=== PATIENT | female | born 1985 | race Caucasian/White ===

== ENCOUNTER 2016-03-24 11:38 | Outpatient (CLI) | payer OTHER ==
[2016-03-24 12:31] LABS: APPEARANCE,URINE CLOUDY; BILIRUBIN,URINE NEGATIVE (NEGATIVE); GLUCOSE, URINE NEGATIVE (NEGATIVE); KETONES,URINE 20 mg/dL (NEGATIVE); LEUKOCYTE ESTERASE,URINE MODERATE (NEGATIVE); NITRITE,URINE NEGATIVE (NEGATIVE); PROTEIN,URINE 30 mg/dL (NEGATIVE); URINE SPECIFIC GRAVITY 1.017; UROBILINOGEN,URINE NEGATIVE mg/dL (<2.0)
[2016-03-24 12:44] LABS: URINE BARBITURATES SCREEN NEGATIVE; URINE METHADONE SCREEN NEGATIVE; URINE PHENCYCLIDINE SCREEN NEGATIVE
--- NOTE | 2016-03-27 11:15 | L&D Current Admission ---
Current Admit Datetime Report Generated by CPN: 03/27/2016 11:15 ADMISSION INFORMATION Chief Complaint: Decreased Movement; Nausea; Vomiting (03/24/2016 11:55:KOFI Marr)
--- NOTE | 2016-03-27 11:15 | Antepartum Discharge Summary ---
Antepartum DC Datetime Report Generated by CPN: 03/27/2016 11:15 DIET/ACTIVITY/RESTRICTIONS Diet: Regular (03/24/2016 13:02:KOFI Marr) Activity: Normal Activity (03/24/2016 13:02:Luz Elena Coles RNC) TEACHING/INSTRUCTIONS/REFERRALS Instructions Given To: Patient (03/24/2016 13:02:KOFI Marr) Instructions Understood: Patient Verbalized Understanding; Support Person Verbalized Understanding (03/24/2016 13:02:KOFI Marr) Referrals: None (03/24/2016 13:02:KOFI Marr) Educational Materials- Other: hydration (03/24/2016 13:02:KOFI Marr) DISCHARGE INFORMATION Discharged AMA: No (03/24/2016 13:02:KOFI Marr) Discharge Date/Time: 03/24/2016 12:48 (03/24/2016 13:02:KOFI Marr) Discharged To: Home (03/24/2016 13:02:KOFI Marr) Discharge Provider Name: Janine Willson CNM (03/24/2016 13:02:KOFI Marr) Accompanied By: , children (03/24/2016 13:02:KOFI Marr) Discharge Method: Wheelchair (03/24/2016 13:02:KOFI Marr) Condition: Stable (03/24/2016 13:02:KOFI Marr) FOLLOW UP INFORMATION Follow Up With: [facility] (03/24/2016 13:02:KOFI Marr) Follow Up On: As Scheduled (03/24/2016 13:02:KOFI Marr) Follow Up Phone Number: [facility] - (03/24/2016 13:02:KOFI Marr)
--- NOTE | 2016-03-27 11:16 | L&D Flow Sheet ---
LD Flowsheet Datetime Report Generated by CPN: 03/27/2016 11:16 Datetime: 03/24/2016 12:41 Comments: Monitors removed from abdomen, pt transported to ER for assessment and treatment of n/v. (Luz Elena Sanket, RNC) Datetime: 03/24/2016 12:30 Monitor Mode: External (Luz Elena Sanket, RNC) Frequency (min): x0 (Luz Elena Sanket, RNC) Resting Tone (Palpate): Relaxed (Luz Elena Sanket, RNC) Monitor Mode: External US (KOFI Marr) FHR Baseline Rate : 135 (KOFI Marr) Variability: Moderate 6-25 bpm (KOFI Marr) Accelerations: None (KOFI Marr) Decelerations: None (Luz Elena Coles RNC) Datetime: 03/24/2016 12:04 NBP Sys/Ashley/Mean (mmHg): 113 (QS system process) : 68 (QS system process) : 85 (QS system process) Pulse: 89 (QS system process) Datetime: 03/24/2016 11:55 Pain Scale: 0 (KOFI Marr) Pain Presence: None/Denies (KOFI Marr) Level of Consciousness: Fully Conscious (KOFI Marr) DTR's/Clonus: DTRs 2+; No Clonus (KOFI Marr) Headache: Denies (KOFI aMrr) Breath Sounds, Left: Clear and Equal (KOIF Marr) Breath Sounds, Right: Clear and Equal (Luz Elena Coles RNC) Nausea/Vomiting: Present (Annotations: Pt states that her kids have had a stomach bug at the beginning of the week and since had gotten it as well. She states that she hasn't been able to keep anything down until this morning when she was able to keep water and some oranges down. ) (KOFI Marr) RUQ Epigastric Pain: Denies (KOFI Marr) Instructional Method: Verbal; Patient Instructed; Family/Support Person Instructed; Verbalized Understanding (KOFI Marr) Plan of Care: Plan of Care Discussed (KOFI Marr) Unit Routine: Wing[place] to Room; Call Shukla; Bed; Unit Personnel; Handwashing; Flu/Illness Precautions; Monitoring; Diet/Nutrition Services; Bathroom Privileges (KOFI Marr) PTL/PROM: PTL Stimulating Activities; Hydration (KOFI Marr) Related: Common Discomforts of ; Nutrition; Hydration; Activity and Rest (KOFI Marr) Grief Support: Procedure/Plan; Medications (KOFI Marr)
--- NOTE | 2016-03-27 11:16 | L&D General Admission ---
General Admit Datetime Report Generated by CPN: 03/27/2016 11:15 INFORMATION Patient Age: 30 (03/17/2016 11:11:QS system process) EDC: 06/05/2016 00:00 (03/24/2016 11:53:Edgar Ibrahim RN) LMP: 08/18/2015 00:00 (03/24/2016 11:53:Edgar Ibrahim RN) : 3 (03/24/2016 11:53:Edgar Ibrahim RN) Para: 2 (03/24/2016 11:53:Edgar Ibrahim RN) Term: 2 (03/24/2016 11:53:KOFI Marr) : 0 (03/24/2016 11:53:KOFI Marr) Spontaneous Abortions: 0 (03/24/2016 11:53:KOFI Marr) Induced Abortions: 0 (03/24/2016 11:53:KOFI Mrar) Livin (03/24/2016 11:53:KOFI Marr) CARE Primary Assistant Paralegal: [employer] [facility] (03/24/2016 11:53:KOFI Marr) Height (in): 66 (03/24/2016 11:55:QS system process) ALLERGIES Medication Allergy: No (03/24/2016 11:53:Edgar Ibrahim RN) Medication Allergies: penicillin G (03/24/2016) (03/24/2016 11:55:QS system process) Medication Allergies: penicillin G (09/11/2014) (03/17/2016 11:11:QS system process) Latex Allergy: Latex Allergies (03/24/2016 11:53:Edgar Ibrahim RN) DEMOGRAPHICS Address: [address] [place] [address] (03/17/2016 11:11:QS system process) Zipcode: [address] (03/17/2016 11:11:QS system process) Home (03/17/2016 11:11:QS system process) SSN: [id number] (03/17/2016 11:11:QS system process) Next of Kin Name: ABRAHAM GIRON (03/17/2016 11:11:QS system process) Next of Kin (03/17/2016 11:11:QS system process) Next of Kin Relationship: SPO (03/17/2016 11:11:QS system process) Date of : 1985 (03/17/2016 11:11:QS system process) Marital Status: (03/17/2016 11:11:QS system process) Sex: Female (03/17/2016 11:11:QS system process) Race: (03/17/2016 11:11:QS system process) Ethnicity: Non- or (03/17/2016 11:11:QS system process) Jew: Adventist (03/17/2016 11:11:QS system process) DRUG AND ALCOHOL USE Alcohol: No (03/24/2016 11:53:KOFI Marr) Cigarettes: Never Smoker. [id number] (03/24/2016 11:53:KOFI Marr) Marijuana: No (03/24/2016 11:53:KOFI Marr) Cocaine: No (03/24/2016 11:53:KOFI Marr) Other Illicit Drugs: No (03/24/2016 11:53:KOFI Marr) VACCINE HISTORY Influenza Vaccine: Yes (03/24/2016 11:53:Edgar Ibrahim RN) Influenza Date: 01-21-16 (03/24/2016 11:53:Edgar Ibrahim RN) Tetanus Vaccine: Yes (03/24/2016 11:53:Edgar Ibrahim RN) Tetanus Date: 07-30-2014 (03/24/2016 11:53:Edgar Ibrahim RN) LABS Hemoglobin: 12.6 (03/24/2016 13:36:QS system process) Hematocrit: 36.6 (03/24/2016 13:36:QS system process) MCV: 89 (03/24/2016 13:36:QS system process) OB/PREVIOUS HISTORY LMP: 08/18/2015 00:00 (03/24/2016 11:53:Edgar Ibrahim RN) Comments Obstetrical History: G1 04/10/2013 38wk 24hr labor 6.10lb F Epidural [place] G2 10/10/2014 39.1wk 6.15lb M Epidural [facility] G3 Current (03/24/2016 11:53:Edgar Ibrahim RN) INFECTIOUS HISTORY Details of Infectious Hx: Colposcopy 2012 (03/24/2016 11:53:Edgar Ibrahim RN)
--- NOTE | 2016-03-27 11:17 | L&D Discharge Summary ---
OB Discharge Summary Datetime Report Generated by CPN: 03/27/2016 11:16 DISCHARGE DIAGNOSIS Diagnosis/Symptoms: Decreased Movement; Reassuring Surveillance - Annotate Details; Dehydration; Nausea/Vomiting Diagnoses/Symptoms Other: IUP at 29.4 weeks, positive FM, appropriate for gestational age surveillance. Treatment/Procedures Other: Pt transferred back to ER for further evaluation of non-OB complaints Gestation: 29.4 Parity: 2 DIET/ACTIVITY/RESTRICTIONS Diet: Regular Activity: Normal Activity TEACHING/INSTRUCTIONS/REFERRALS Instructions Given To: Patient Instructions Understood: Patient Verbalized Understanding; Support Person Verbalized Understanding Referrals: None Educational Materials- Other: hydration DISCHARGE INFORMATION Discharged AMA: No Discharge Date/Time: 03/24/2016 12:48 Discharged To: Home Discharge Provider Name: H Demetris CNM Accompanied By: , children Discharge Method: Wheelchair Condition: Stable FOLLOW UP INFORMATION Follow Up With: [facility] Follow Up On: As Scheduled Follow Up Phone Number: [facility] -
--- NOTE | 2016-03-27 11:18 | L&D Discharge Summary ---
OB Discharge Summary Datetime Report Generated by CPN: 03/27/2016 11:18 DISCHARGE DIAGNOSIS Diagnosis/Symptoms: Decreased Movement; Reassuring Surveillance - Annotate Details; Dehydration; Nausea/Vomiting Diagnoses/Symptoms Other: IUP at 29.4 weeks, positive FM, appropriate for gestational age surveillance. Treatment/Procedures Other: Pt transferred back to ER for further evaluation of non-OB complaints Gestation: 29.4 Parity: 2 DIET/ACTIVITY/RESTRICTIONS Diet: Regular Activity: Normal Activity TEACHING/INSTRUCTIONS/REFERRALS Instructions Given To: Patient Instructions Understood: Patient Verbalized Understanding; Support Person Verbalized Understanding Referrals: None Educational Materials- Other: hydration DISCHARGE INFORMATION Discharged AMA: No Discharge Date/Time: 03/24/2016 12:48 Discharged To: Home Discharge Provider Name: H Demetris CNM Accompanied By: , children Discharge Method: Wheelchair Condition: Stable FOLLOW UP INFORMATION Follow Up With: [facility] Follow Up On: As Scheduled Follow Up Phone Number: [facility] -
== END 2016-03-24 12:48 | disposition home or self-care (01) ==
LOC: LC 11:38
PROVIDERS: ATTEND Obstetrics & Gynecology
PROC: 4A1HXCZ Monitoring of Products of Conception, Cardiac Rate, External Approach (ICD-10-PCS; principal; 2016-03-24)
DX: O36.8130 Decreased fetal movements, third trimester, not applicable or unspecified (principal); O21.2 Late vomiting of pregnancy; Z3A.29 29 weeks gestation of pregnancy
CPT/HCPCS: 80307; 81001

== ENCOUNTER 2016-03-24 12:57 | Emergency (ER) | payer OTHER ==
--- NOTE | 2016-03-24 13:34 | ER Document Report ---
ED Medical Screen (RME) - General Chief Complaint: Nausea/Vomiting Stated Complaint: URINARY PROBLEM Time seen by provider: 13:31 Mode of Arrival: Ambulatory Information source: Patient Notes: 30 yo female presents to ed for back pain vomiting, urinary frequency with blood in it. 30 weeks TRAVEL OUTSIDE OF THE [place] IN LAST 30 DAYS: No - HPI Onset: Other - sunday Onset/Duration: Gradual Quality of pain: Achy Pain Level: 2 Associated Symptoms: Body/muscle aches, Nausea, Other - back pain, urinary symptoms, 30 weeks cleared by OB Exacerbated by: Denies Relieved by: Denies Similar symptoms previously: Yes Recently seen / treated by doctor: Yes - Related Data Smoking: Non-smoker Frequency of alcohol use: None Drug Abuse: None Allergies/Adverse Reactions: penicillin G [Penicillin G] Adverse Reaction (Verified 03/24/16 13:28) Doctor's Discharge - Discharge Condition: Stable Disposition: LABOR CHECK
[2016-03-24 14:16] LABS: ABSOLUTE EOSINOPHILS # (AUTO) 0.1 10^3/uL (0.0-0.6); ABSOLUTE LYMPHOCYTES (AUTO) 1.5 10^3/uL (0.5-4.7); ABSOLUTE MONOCYTES (AUTO) 0.7 10^3/uL (0.1-1.4); BASOPHILS % (AUTO) 0.2 % (0-2); EOSINOPHILS % (AUTO) 0.6 % (0-6); HEMATOCRIT 36.6 % (36.0-47.0); HEMOGLOBIN 12.6 g/dL (12.0-15.5); HGB HCT DIFFERENCE 1.2; MEAN CORPUSCULAR HEMOGLOBIN 30.4 pg (27.0-33.4); MEAN CORPUSCULAR HGB CONC 34.3 g/dL (32.0-36.0); MEAN CORPUSCULAR VOLUME 89 fl (80-97); MONOCYTES % (AUTO) 7.8 % (3-13); RED BLOOD COUNT 4.13 10^6/uL (3.72-5.28); RED CELL DISTRIBUTION WIDTH 13.3 % (11.5-14.0); SEGMENTED NEUTROPHILS % (AUTO) 75.4 % (42-78); WHITE BLOOD COUNT 9.3 10^3/uL (4.0-10.5)
[2016-03-24 14:21] LABS: APPEARANCE,URINE CLEAR; BILIRUBIN,URINE NEGATIVE (NEGATIVE); GLUCOSE, URINE NEGATIVE (NEGATIVE); KETONES,URINE 20 mg/dL (NEGATIVE); LEUKOCYTE ESTERASE,URINE NEGATIVE (NEGATIVE); NITRITE,URINE NEGATIVE (NEGATIVE); PROTEIN,URINE NEGATIVE (NEGATIVE); URINE SPECIFIC GRAVITY 1.006; UROBILINOGEN,URINE NEGATIVE mg/dL (<2.0)
[2016-03-24 14:40] LABS: ALANINE AMINOTRANSFERASE 27 U/L (9-52); ALBUMIN 3.3 g/dL (3.5-5.0); ALKALINE PHOSPHATASE 90 U/L (38-126); ANION GAP 12 (5-19); ASPARTATE AMINO TRANSFERASE 19 U/L (14-36); BILIRUBIN,TOTAL 0.3 mg/dL (0.2-1.3); BLOOD UREA NITROGEN 9 mg/dL (7-20); CALCIUM 8.6 mg/dL (8.4-10.2); CARBON DIOXIDE 22 mmol/L (22-30); CHLORIDE 103 mmol/L (98-107); CREATININE RESULT 0.64 mg/dL (0.52-1.25); GLUCOSE 73 mg/dL (75-110); SODIUM 136.6 mmol/L (137-145); TOTAL PROTEIN 6.4 g/dL (6.3-8.2)
--- NOTE | 2016-03-24 15:46 | ER Document Report ---
[id number] PROBLEM Mode of Arrival: Ambulatory Information source: Patient Notes: 22-year-old female who is presents with complaints of blood in her urine as well as three-day duration of vomiting which has since resolved. Patient notes today she has not vomited and has been hydrating well. Denies any fevers or chills. Patient was concerned about movement, and was seen by JOINTER MACHINE upstairs and cleared and sent downstairs to the ED for evaluation TRAVEL OUTSIDE OF THE [place] IN LAST 30 DAYS: No - HPI Onset: Just prior to arrival Onset/Duration: Sudden Quality of pain: No pain Severity: Mild Pain Level: Denies Associated symptoms: Other Exacerbated by: Denies Relieved by: Denies Similar symptoms previously: No Recently seen / treated by doctor: Yes - cleared by JOINTER MACHINE - Related Data Allergies/Adverse Reactions: penicillin G [Penicillin G] Adverse Reaction (Verified 03/24/16 13:28) Past Medical History - General Information source: Patient - Social History Smoking Status: Never Smoker Cigarette use (# per day): No Chew tobacco use (# tins/day): No Smoking Education Provided: No Frequency of alcohol use: None Drug Abuse: None Family History: Reviewed & Not Pertinent Patient has suicidal ideation: No Patient has homicidal ideation: No Surgical Hx: Negative - Immunizations Hx Diphtheria, Pertussis, Tetanus Vaccination: Yes Review of Systems - Review of Systems Notes: REVIEW OF SYSTEMS: CONSTITUTIONAL : Denies fever, chills, or sweats. Denies recent illness. EENT: Denies eye, ear, throat, or mouth pain or symptoms. Denies nasal or sinus congestion or discharge. Denies throat, tongue, or mouth swelling or difficulty swallowing. CARDIOVASCULAR: Denies chest pain. Denies palpitations or racing or irregular heart beat. Denies ankle edema. RESPIRATORY: Denies cough, cold, or chest congestion. Denies shortness of breath, difficulty breathing, or wheezing. GASTROINTESTINAL: Denies abdominal pain or distention. Denies nausea, vomiting , or diarrhea. Denies blood in vomitus, stools, or per rectum. Denies black, tarry stools. Denies constipation. GENITOURINARY: Admits to blood in urine FEMALE GENITOURINARY: Denies vaginal bleeding, heavy or abnormal periods, irregular periods. Denies vaginal discharge or odor. MUSCULOSKELETAL: Denies back or neck pain or stiffness. Denies joint pain or swelling. SKIN: Denies rash, lesions or sores. HEMATOLOGIC : Denies easy bruising or bleeding. LYMPHATIC: Denies swollen, enlarged glands. NEUROLOGICAL: Denies confusion or altered mental status. Denies passing out or loss of consciousness. Denies dizziness or lightheadedness. Denies headache. Denies weakness or paralysis or loss of use of either side. Denies problems with gait or speech. Denies sensory loss, numbness, or tingling. Denies seizures. PSYCHIATRIC: Denies anxiety or stress. Denies depression, suicidal ideation, or homicidal ideation. ALL OTHER SYSTEMS REVIEWED AND NEGATIVE. Dictation was performed using [employer] voice recognition software PHYSICAL EXAMINATION: GENERAL: Well-appearing, well-nourished and in no acute distress. HEAD: Atraumatic, normocephalic. EYES: Pupils equal round and reactive to light, extraocular movements intact, conjunctiva are normal. ENT: Nares patent, oropharynx clear without exudates. Moist mucous membranes. NECK: Normal range of motion, supple without lymphadenopathy LUNGS: Breath sounds clear to auscultation bilaterally and equal. No wheezes rales or rhonchi. HEART: Regular rate and rhythm without murmurs ABDOMEN: Soft, gravid nontender, abdomen. No guarding, no rebound. No masses appreciated. Female : deferred Musculoskeletal: Normal range of motion, no pitting or edema. No cyanosis. NEUROLOGICAL: Cranial nerves grossly intact. Normal speech, normal gait. Normal sensory, motor exams PSYCH: Normal mood, normal affect. SKIN: Warm, Dry, normal turgor, no rashes or lesions noted. Physical Exam - Vital signs Vitals: Temp Pulse Resp BP Pulse Ox 98 F 84 20 120/81 99 03/24/16 13:28 03/24/16 13:28 03/24/16 13:28 03/24/16 13:28 03/24/16 13:28 Course - Re-evaluation Re-evalutation: 03/24/16 21:31 Urinalysis did not note any signs of infection or bleeding, patient was evaluated for her and this was noted to be normal. I will send the patient home with nausea medication and she is otherwise stable for discharge. Patient denies any other concerns at this time and is very happy with her care After performing a Medical Screening Examination, I estimate there is LOW risk for ACUTE APPENDICITIS, BOWEL OBSTRUCTION, ACUTE CHOLECYSTITIS, PERFORATED DIVERTICULITIS, INCARCERATED HERNIA, PANCREATITIS, PELVIC INFLAMMATORY DISEASE, PERFORATED ULCER, ECTOPIC , or TUBO-OVARIAN ABSCESS, thus I consider the discharge disposition reasonable. Also, there is no evidence or peritonitis , sepsis, or toxicity. The patient and I have discussed the diagnosis and risks , and we agree with discharging home with close follow-up with the understanding that symptoms and presentations can change. We also discussed returning to the Emergency Department immediately if new or worsening symptoms occur. We have discussed the symptoms which are most concerning (e.g., bloody stool, fever, changing or worsening pain, vomiting) that necessitate immediate return. - Vital Signs Vital signs: Temp Pulse Resp BP Pulse Ox 98.3 F 93 18 101/66 97 03/24/16 16:14 03/24/16 16:14 03/24/16 16:14 03/24/16 16:14 03/24/16 16:14 - Laboratory Result Diagrams: 03/24/16 13:36 03/24/16 13:36 Laboratory results interpreted by me: 03/24/16 03/24/16 13:36 13:36 Sodium 136.6 L Glucose 73 L Albumin 3.3 L Urine Ketones 20 H Discharge - Discharge Clinical Impression: Nausea & vomiting Qualifiers: Vomiting type: unspecified Vomiting Intractability: non-intractable Qualified Code(s): R11.2 - Nausea with vomiting, unspecified Qualifiers: Weeks of gestation: unspecified Qualified Code(s): Z33.1 - state, incidental Condition: Stable Disposition: HOME, SELF-CARE Instructions: Vomiting ([facility]) Prescriptions: Promethazine HCl [Phenergan 25 mg Tablet] 1 - 2 tab PO Q6H PRN #15 tablet PRN Reason: Referrals: POPEYE DOUGLAS MD [Primary Care Provider] - Follow up tomorrow
[2016-03-24 16:15] VITALS: BP 101/66
== END 2016-03-24 15:53 | disposition home or self-care (01) ==
LOC: ER 12:57
DX: O21.2 Late vomiting of pregnancy (principal); O26.893 Other specified pregnancy related conditions, third trimester; R31.9 Hematuria, unspecified; Z3A.30 30 weeks gestation of pregnancy
CPT/HCPCS: 36415; 80053; 81001; 85025; 99283

== ENCOUNTER 2016-05-14 19:08 | Inpatient (IN) | payer OTHER ==
[2016-05-14 19:55] LABS: APPEARANCE,URINE CLEAR; BILIRUBIN,URINE NEGATIVE (NEGATIVE); GLUCOSE, URINE NEGATIVE (NEGATIVE); KETONES,URINE NEGATIVE (NEGATIVE); LEUKOCYTE ESTERASE,URINE NEGATIVE (NEGATIVE); NITRITE,URINE NEGATIVE (NEGATIVE); PROTEIN,URINE NEGATIVE (NEGATIVE); URINE SPECIFIC GRAVITY 1.008; UROBILINOGEN,URINE NEGATIVE mg/dL (<2.0)
[2016-05-14 20:06] LABS: AMNISURE (ROM) NEGATIVE (NEGATIVE)
[2016-05-14 20:11] LABS: URINE BARBITURATES SCREEN NEGATIVE; URINE METHADONE SCREEN NEGATIVE; URINE OPIATES LOW NEGATIVE; URINE PHENCYCLIDINE SCREEN NEGATIVE
[2016-05-14] MEDS ORDERED: RINGERS SOLUTION,LACTATED 1,000 ML IV ONE (20:25)
[2016-05-14] MEDS ORDERED: CLINDAMYCIN 900 MG/D5W RTU 50 ML IV ONE (20:29)
[2016-05-14] MEDS ORDERED: CLINDAMYCIN 900 MG/D5W RTU 50 ML IV SCH (20:30)
[2016-05-14 21:15] LABS: ABSOLUTE EOSINOPHILS # (AUTO) 0.2 10^3/uL (0.0-0.6); ABSOLUTE LYMPHOCYTES (AUTO) 2.6 10^3/uL (0.5-4.7); ABSOLUTE MONOCYTES (AUTO) 1.1 10^3/uL (0.1-1.4); ABSOLUTE NEUT (AUTO) 9.8 10^3/uL (1.7-8.2); BASOPHILS % (AUTO) 0.2 % (0-2); EOSINOPHILS % (AUTO) 1.5 % (0-6); HEMATOCRIT 35.5 % (36.0-47.0); HEMOGLOBIN 11.8 g/dL (12.0-15.5); HGB HCT DIFFERENCE -0.1; LYMPHOCYTES % (AUTO) 19.1 % (13-45); MEAN CORPUSCULAR HEMOGLOBIN 29.6 pg (27.0-33.4); MEAN CORPUSCULAR HGB CONC 33.4 g/dL (32.0-36.0); MEAN CORPUSCULAR VOLUME 89 fl (80-97); MONOCYTES % (AUTO) 7.8 % (3-13); RED BLOOD COUNT 3.99 10^6/uL (3.72-5.28); RED CELL DISTRIBUTION WIDTH 14.3 % (11.5-14.0); SEGMENTED NEUTROPHILS % (AUTO) 71.4 % (42-78); WHITE BLOOD COUNT 13.7 10^3/uL (4.0-10.5)
[2016-05-14] MEDS ORDERED: BUPIVACAINE HCL 0.25 % INJ/PF (2.5 MG/1 ML) 30 ML VIAL ONE (21:34)
[2016-05-14] MEDS ORDERED: FENTANYL/BUPIVACAINE/NS/PF 200 MCG/100 ML RTUINJ EPI ONE (21:34)
[2016-05-14] MEDS ORDERED: EPHEDRINE SULFATE INJ 50 MG/1 ML AMPULE ONE (21:34)
--- NOTE | 2016-05-14 22:00 | L&D Flow Sheet ---
LD Flowsheet Datetime Report Generated by CPN: 05/14/2016 22:00 Datetime: 05/14/2016 21:58 NBP Sys/Ashley/Mean (mmHg): 124 (QS system process) : 69 (QS system process) : 91 (QS system process) Pulse: 83 (QS system process) Datetime: 05/14/2016 21:57 NBP Sys/Ashley/Mean (mmHg): 138 (QS system process) : 79 (QS system process) : 101 (QS system process) Pulse: 98 (QS system process) Epidural Procedure: Cath Placed (Cristiana Lattibeaudeir, RN) Datetime: 05/14/2016 21:56 NBP Sys/Ashley/Mean (mmHg): 142 (QS system process) : 85 (QS system process) : 108 (QS system process) Pulse: 101 (QS system process) Epidural Procedure: Test Dose (Cristiana Lattibeaudeir, RN) Datetime: 05/14/2016 21:54 Pulse: 109 (QS system process) SpO2 (%): 100 (QS system process) Datetime: 05/14/2016 21:52 NBP Sys/Ashley/Mean (mmHg): 148 (QS system process) : 90 (QS system process) : 114 (QS system process) Pulse: 99 (QS system process) Datetime: 05/14/2016 21:49 Pulse: 95 (QS system process) SpO2 (%): 100 (QS system process) SpO2 (%): 91 (QS system process) Datetime: 05/14/2016 21:46 Anesthesia Comments: Dr. Dariel at bs (Cristiana Lattibeaudeir, RN) Datetime: 05/14/2016 20:54 Monitor Interventions for UA: [place] Adjusted (Cristiana Lattibeaudeir, RN) Datetime: 05/14/2016 20:52 Antibiotics: Clindamycin IV 900 mg (Cristiana Lattibeaudeir, RN) Datetime: 05/14/2016 20:51 IV/Blood Work: IV Started; IV Bolus Started; IV Infusing per Order; New IV Bag Hung; IV Bag Number @ 1 (Cristiana Lattibeaudeir, RN) Datetime: 05/14/2016 20:47 NBP Sys/Ashley/Mean (mmHg): 142 (QS system process) : 84 (QS system process) : 105 (QS system process) Pulse: 92 (QS system process) Datetime: 05/14/2016 20:24 NBP Sys/Ashley/Mean (mmHg): 139 (QS system process) : 93 (QS system process) : 109 (QS system process) Pulse: 90 (QS system process)
[2016-05-15] MEDS ORDERED: EPHEDRINE SULFATE INJ 50 MG/1 ML AMPULE IV ONE (00:07)
[2016-05-15] MEDS ORDERED: BUPIVACAINE HCL 0.25 % INJ/PF (2.5 MG/1 ML) 30 ML VIAL INFIL ONE (00:07)
[2016-05-15] MEDS ORDERED: BENZOIN/ALOE VERA/STORAX/TOLU TINCTURE 60 ML TP PRN (00:07)
[2016-05-15] MEDS ORDERED: FENTANYL/BUPIVACAINE/NS/PF 100 ML EPI PRN (00:07)
[2016-05-15] MEDS ORDERED: EPHEDRINE SULFATE INJ 50 MG/1 ML AMPULE IV PRN (00:07)
[2016-05-15] MEDS ORDERED: LIDOCAINE 1% INJ-PF (10 MG/ML) 30 ML SDV ONE (00:12)
[2016-05-15] MEDS ORDERED: MISOPROSTOL 0.2 MG TABLET ONE (00:12)
[2016-05-15] MEDS ORDERED: OXYTOCIN/NORMAL SALINE 20 UNIT/1,000 ML RTUINJ ONE (00:12)
[2016-05-15] MEDS ORDERED: ACETAMINOPHEN WITH CODEINE #3 TABLET PO PRN (00:48)
[2016-05-15] MEDS ORDERED: MEASLES,MUMPS&RUBELLA VACC/PF 0.5 ML VIAL SUBCUT PRN (00:48)
[2016-05-15] MEDS ORDERED: DIPH/PERTUSS(ACELL)/TETANUS VAC/PF 0.5 ML SYR (>=10YO) IM PRN (00:48)
[2016-05-15] MEDS ORDERED: DIBUCAINE 1% OINTMENT 28 GM TP PRN (00:48)
[2016-05-15] MEDS ORDERED: ZOLPIDEM TARTRATE 5 MG TABLET PO PRN (00:48)
[2016-05-15] MEDS ORDERED: OXYTOCIN/NORMAL SALINE 1,000 ML IV PRN (00:48)
[2016-05-15] MEDS ORDERED: BENZOCAINE/MENTHOL AEROSOL SPRAY 56 ML TOP PRN (00:48)
[2016-05-15] MEDS: RINGERS SOLUTION,LACTATED 1,000 ML IV PRN ×2 (01:14→01:15)
--- NOTE | 2016-05-15 02:28 | Delivery Summary ---
Del Sum A-C Datetime Report Generated by CPN: 05/15/2016 02:27 ADMISSION DATA Chief Complaint: Uterine Contractions; Suspected Ruptured Membranes Admission Impression: , Intrauterine ; Active Labor; Intact Membranes Admit Provider Comments: 30yo at 36+6ega presents with regular uterine ctx possible PROM and advanced cervical dilation. Cvx 5/c/-1 with bb. ctx q 3 minutes. x 2. GBS unknown as it was done on 05/11. Will begin Clindamycin for GBS prophy due to PCN allergy. Admit to L_D and obtain epidural and augment labor if needed. Reassuring FWB. Vertex presentation. Pelvis adequate for MARICEL. EFW 6# DELIVERY PERSONNEL Delivery Doctor:: Zenia Reddy MD Labor and Delivery Nurse:: Cristiana Green RN Labor and Delivery Nurse:: Erika Moses RN MATERNAL INFORMATION Delivery Anesthesia: Epidural Medications After Delivery: Pitocin Drip 20 Units/1000ml NSS Maternal Complications: None Provider Comments: VMI delivered in ALDO presentation with no nuchal cord. Shoulders and body delivered w/o difficulty. Cord doubly clamped and infant to maternal abdomen for NRP. Placenta delivered intact spontaneously. FF at U. Good hemostasis post repair. Mother and baby stable upon provider leaving the room. Apgars 9/9. LABOR SUMMARY EDC: 06/05/2016 00:00 No. Babies in Womb: 1 Attempted: No Labor Anesthesia: Epidural LABOR INFORMATION Reason for Induction: Not Applicable Onset of Labor: 05/14/2016 20:30 Complete Dilatation: 05/15/2016 00:14 Oxytocin: N/A Group B Beta Strep: Unknown Antibiotics # of Doses: 1 Antibiotics Time of Last Dose: 2051 Name of Antibiotic Given: Clindamycin 900mg Steroids Given: None Reason Steroids Not Administered: Not Applicable MEMBRANES Membranes Rupture Method: Spontaneous Rupture of Membranes: 05/15/2016 00:14 Length of Rupture (hr): 0.35 Amniotic Fluid Color: Clear Amniotic Fluid Amount: Moderate Amniotic Fluid Odor: Normal STAGES OF LABOR Stage 1 hr: 3 Stage 1 min: 44 Stage 2 hr: 0 Stage 2 min: 21 Stage 3 hr: 0 Stage 3 min: 3 Total Time in Labor hr: 4 Total Time in Labor min: 8 VAGINAL DELIVERY Episiotomy: None Laceration Extension: First Degree Laceration Type: Vaginal Other Laceration: clitoral Laceration Repair: Yes Laceration Repair Note: 1st degree clitoral laceration repaired in the usual fashion with good hemostasis. Sponge Count Correct: N/A Sharps Count Correct: Yes CSECTION DELIVERY Primary Indication: N/A Secondary Indication: N/A CSection Incidence: N/A Labor: N/A Elective: N/A CSection Incision: N/A BABY A INFORMATION Delivery Date/Time: 05/15/2016 00:35 Method of Delivery: Vaginal Born in Route : No : N/A Forceps: N/A Vacuum Extraction: N/A Shoulder Dystocia : No PRESENTATION/POSITION BABY A Presentation: Cephalic Cephalic Presentation: Vertex Vertex Position: Left Occipital Anterior Breech Presentation: N/A PLACENTA INFORMATION BABY A Placenta Delivery Time : 05/15/2016 00:38 Placenta Method of Delivery: Spontaneous Placenta Status: Delivered SCORES BABY A Heart Rate 1 min: >100 bpm Resp Effort 1 min: Good Cry Reflex Irritability 1 min: Cough or Sneeze or Pulls Away Muscle Tone 1 min: Active Motion Color 1 min: Body [place], Extremities Blue Resuscitation Effort 1 min: Tactile Stimulation SCORE 1 MIN: 9 Heart Rate 5 min: >100 bpm Resp Effort 5 min: Good Cry Reflex Irritability 5 min: Cough or Sneeze or Pulls Away Muscle Tone 5 min: Active Motion Color 5 min: Body [place], Extremities Blue Resuscitation Effort 5 min: Tactile Stimulation SCORE 5 MIN: 9 INFORMATION BABY A Gestational Age at Delivery: 37.0 Gestational Status: Early Term- 37- 38.6 Weeks Infant Outcome : Liveborn Infant Condition : Stable Infant Sex: Male IDENTIFICATION BABY A Verification Date/Time: 05/15/2016 01:05 ID Band Number: [id number] Mother's Name Verified: Yes RN Verifying Infant: Zaida Green RN Additional Verifying Personnel: Daniel Renteria RN WEIGHT/LENGTH BABY A Birthweight (gm): 3530 Weight (lb): 7 Weight (oz): 13 Length (in): 20.75 Infant Length (cm): 52.71 CORD INFORMATION BABY A No. Cord Vessels: 3 Nuchal Cord : N/A Nuchal Cord- Other: left compound hand Cord Blood Taken: Yes-For Eval (Mom's Blood Type - or O+) Suction: Mouth; Nose ASSESSMENT BABY A Infant Complications: None Physical Findings at Delivery: Within Normal Limits Respirations: Appears Normal [employer] Attendant/ALS Called : No Care By: Al Cavazos, RN Transferred To: Remains with Mother BABY B INFORMATION : N/A SIGNATURES Signature: with User ID: [email or web address]
--- NOTE | 2016-05-15 02:46 | Admission Physical ---
Datetime Report Generated by CPN: 05/15/2016 02:45 CURRENT ADMISSION Chief Complaint: Uterine Contractions; Suspected Ruptured Membranes Admit Plan: Admit to Unit; Initiate Labor Protocol ALLERGIES Medication Allergies: No Medication Allergies: penicillin G (03/24/2016) Latex: Latex Allergies OBSTETRICAL HISTORY EDC: 06/05/2016 00:00 : 3 Para: 2 Term: 2 : 0 SAB: 0 IAB: 0 Ectopic: 0 Livin Cesareans: 0 VBACs: 0 Multiple Births: 0 Gestational Diabetes: No Rh Sensitization: No Incompetent Cervix: No ETIENNE: No Infertility: No ART Treatment: No Uterine Anomaly: No IUGR: No Hx Previous C/S: No Macrosomia: No Hx Loss/Stillborn: No PIH: No Hx : No Placenta Previa/Abruption: No Depression/PP Depression: No PTL/PROM: No Post Hemorrhage: No Current Procedures: Ultrasound; NST Obstetrical History Comments: G1 04/10/2013 38wk 24hr labor 6.10lb F Epidural [place] G2 10/10/2014 39.1wk 6.15lb M Epidural [facility] G3 Current SEE RECORDS Alcohol: No Marijuana : No Cocaine: No Other Illicit Drugs: No Cigarettes: Never Smoker. [id number] MEDICAL HISTORY Diabetes: No Blood Transfusion: No Pulmonary Disease (Asthma, TB): No Breast Disease: No Hypertension: No Transmission Tester Surgery: No Heart Disease: No Hosp/Surgery: Yes Autoimmune Disorder: No Anesthetic Complications: No Kidney Disease: No Abnormal Pap Smear: Yes Neuro/Epilepsy: No Psychiatric Disorders: No Other Medical Diseases: No Hepatitis/Liver Disease: No Significant Family History: No Varicosities/Phlebitis: No Trauma/Violence : No Thyroid Dysfunction: No Medical History Comments: childbirth INFECTIOUS HISTORY Gonorrhea: No Genital Herpes: No Chlamydia: No Tuberculosis: No Syphilis: No Hepatitis: No HIV/AIDS Exposure: No Rash or Viral Illness: No HPV: No Infectious History Comments: Colposcopy 2012 PHYSICAL EXAM General: Normal HEENT: Normal Neurologic: Normal Thyroid: Normal Heart: Normal Lungs: Normal Breast: Deferred Back: Normal Abdomen: Normal Genitourinary Exam: Normal Extremities: Normal DTRs: Normal Pelvic Type: Adequate Physical Exam Comments: pelvis proven to 6#15oz Vital Signs: Reviewed; Within Normal Limits VAGINAL EXAM Dilatation: 5 Effacement: 100 Station: -1 MEMBRANES Pooling: Negative Membranes: Intact FETUS A EGA: 36.6 Monitoring: External US FHR- Baseline: 125 Variability: Moderate 6-25bpm Accelerations: 15X15 Decelerations: None FHR Category: Category I Presentation: Vertex Admit Comment: 30yo at 36+6ega presents with regular uterine ctx possible PROM and advanced cervical dilation. Cvx 5/c/-1 with bb. ctx q 3 minutes. x 2. GBS unknown as it was done on 05/11. Will begin Clindamycin for GBS prophy due to PCN allergy. Admit to L_D and obtain epidural and augment labor if needed. Reassuring FWB. Vertex presentation. Pelvis adequate for MARICEL. EFW 6# PLANS FOR LABOR AND DELIVERY Labor and Delivery: None Pain Management: Epidural Feeding Preference: Breast Benefit of Breast Feed Discussed: Yes INFORMED CONSENT Informed Consent Obtained: Vaginal Delivery; Risks, Benefits and Alternatives Discussed Signature: with User ID: [email or web address]
[2016-05-15] MEDS: IBUPROFEN 800 MG TABLET PO SCH ×3 (05:04→21:36)
--- NOTE | 2016-05-15 07:00 | L&D Flow Sheet ---
LD Flowsheet Datetime Report Generated by CPN: 05/15/2016 07:00 Datetime: 05/15/2016 02:15 NBP Sys/Ashley/Mean (mmHg): 126 (QS system process) : 88 (QS system process) : 102 (QS system process) Pulse: 84 (QS system process) Respirations: 16 (Cristiana Lattibeaudeir, RN) Datetime: 05/15/2016 01:15 Pain Pain Scale: 0 (Cristiana Lattibeaudeir, RN) Pain Presence: None/Denies (Cristiana Lattibeaudeir, RN) Pain Type: N/A (Cristiana Lattibeaudeir, RN) Datetime: 05/15/2016 00:45 Pain Pain Scale: 0 (Cristiana Lattibeaudeir, RN) Pain Presence: None/Denies (Cristiana Lattibeaudeir, RN) Pain Type: N/A (Cristiana Lattibeaudeir, RN) Datetime: 05/15/2016 00:43 NBP Sys/Ashley/Mean (mmHg): 123 (QS system process) : 73 (QS system process) : 91 (QS system process) Pulse: 86 (QS system process) Datetime: 05/15/2016 00:40 Vital Signs Stage of : Recovery (Cristiana Lattibeaudeir, RN) Datetime: 05/15/2016 00:38 Stage 2 Comments: spontaneous delivery of intact placenta (Cristiana Lattibeaudeir, RN) Datetime: 05/15/2016 00:35 Stage 2 Comments: of viable male (Cristiana Lattibeaudeir, RN) Datetime: 05/15/2016 00:32 Stage 2 Pushing: Coached on Pushing (Cristiana Lattibeaudeir, RN) Pushing Position: Pushing with Contractions; Pushing Lithotomy (Cristiana Lattibeaudeir, RN) Pushing Progress: Descent with Pushing (Cristiana Lattibeaudeir, RN) Datetime: 05/15/2016 00:30 Uterine Activity Monitor Mode: External (Cristiana Lattibeaudeir, RN) Frequency (min): 2-3 (Cristiana Lattibeaudeir, RN) Quality: Moderate to Strong (Cristiana Lattibeaudeir, RN) Duration (sec): 60-90 (Cristiana Lattibeaudeir, RN) Resting Tone (Palpate): Relaxed (Cristiana Lattibeaudeir, RN) Assessment A Monitor Mode: External US (Cristiana Lattibeaudeir, RN) FHR Baseline Rate : 120 (Cristiana Lattibeaudeir, RN) Variability: Moderate 6-25 bpm (Cristiana Lattibeaudeir, RN) Accelerations: 15X15 (Cristiana Lattibeaudeir, RN) Datetime: 05/15/2016 00:29 Stage 2 Comments: Dr. Reddy at bs for delivery (Cristiana Lattibeaudeir, RN) Datetime: 05/15/2016 00:14 Vaginal Exam Dilatation (cm): 10.0 (Cristiana Lattibeaudeir, RN) Effacement (%): 100 (Cristiana Lattibeaudeir, RN) [facility]: 0 [facility] Exam by: Zaida Green RN ([facility] Lattibeaudeir, RN) Membrane Status: Ruptured ([facility] Lattibeaudeir, RN) Membranes Rupture Method: Spontaneous ([facility] Lattibeaudeir, RN) Amniotic Fluid Color: Clear (Cristiana Lattibeaudeir, RN) Amniotic Fluid Amount: Moderate (Cristiana Lattibeaudeir, RN) Amniotic Fluid Odor: Normal (Cristiana Lattibeaudeir, RN) Datetime: 05/15/2016 00:09 NBP Sys/Ashley/Mean (mmHg): 115 (QS system process) : 61 (QS system process) : 83 (QS system process) Pulse: 81 (QS system process) Datetime: 05/15/2016 00:03 NBP Sys/Ashley/Mean (mmHg): 116 (QS system process) : 65 (QS system process) : 85 (QS system process) Pulse: 68 (QS system process) Datetime: 05/15/2016 00:00 Uterine Activity Monitor Mode: External (Cristiana Lattibeaudeir, RN) Frequency (min): 1.5-4 (Cristiana Lattibeaudeir, RN) Quality: Moderate to Strong (Cristiana Lattibeaudeir, RN) Duration (sec): 50-90 (Cristiana Lattibeaudeir, RN) Resting Tone (Palpate): Relaxed (Cristiana Lattibeaudeir, RN) Assessment A Monitor Mode: External US (Cristiana Lattibeaudeir, RN) FHR Baseline Rate : 125 (Cristiana Lattibeaudeir, RN) Variability: Moderate 6-25 bpm (Cristiana Lattibeaudeir, RN) Accelerations: 15X15 (Cristiana Lattibeaudeir, RN) Decelerations: Variable (Cristiana Lattibeaudeir, RN) Datetime: 05/14/2016 23:54 NBP Sys/Ashley/Mean (mmHg): 140 (QS system process) : 59 (QS system process) : 85 (QS system process) Pulse: 68 (QS system process) Datetime: 05/14/2016 23:47 NBP Sys/Ashley/Mean (mmHg): 122 (QS system process) : 72 (QS system process) : 92 (QS system process) Pulse: 68 (QS system process) Datetime: 05/14/2016 23:42 NBP Sys/Ashley/Mean (mmHg): 117 (QS system process) : 67 (QS system process) : 86 (QS system process) Pulse: 67 (QS system process) Datetime: 05/14/2016 23:37 NBP Sys/Ashley/Mean (mmHg): 118 (QS system process) : 67 (QS system process) : 85 (QS system process) Pulse: 73 (QS system process) Datetime: 05/14/2016 23:33 NBP Sys/Ashley/Mean (mmHg): 117 (QS system process) : 66 (QS system process) : 86 (QS system process) Pulse: 82 (QS system process) Datetime: 05/14/2016 23:30 Uterine Activity Monitor Mode: External (Cristiana Lattibeaudeir, RN) Frequency (min): 2-4 (Cristiana Lattibeaudeir, RN) Quality: Moderate (Cristiana Lattibeaudeir, RN) Duration (sec): 60-90 (Cristiana Lattibeaudeir, RN) Resting Tone (Palpate): Relaxed (Cristiana Lattibeaudeir, RN) Assessment A Monitor Mode: External US (Cristiana Lattibeaudeir, RN) FHR Baseline Rate : 130 (Cristiana Lattibeaudeir, RN) Variability: Moderate 6-25 bpm (Cristiana Lattibeaudeir, RN) Accelerations: 15X15 (Cristiana Lattibeaudeir, RN) Datetime: 05/14/2016 23:29 NBP Sys/Ashley/Mean (mmHg): 120 (QS system process) : 64 (QS system process) : 86 (QS system process) Pulse: 72 (QS system process) Datetime: 05/14/2016 23:23 NBP Sys/Ashley/Mean (mmHg): 140 (QS system process) : 60 (QS system process) : 86 (QS system process) Pulse: 81 (QS system process) Datetime: 05/14/2016 23:17 NBP Sys/Ashley/Mean (mmHg): 123 (QS system process) : 60 (QS system process) : 86 (QS system process) Pulse: 84 (QS system process) Datetime: 05/14/2016 23:13 NBP Sys/Ashley/Mean (mmHg): 117 (QS system process) : 67 (QS system process) : 86 (QS system process) Pulse: 81 (QS system process) Datetime: 05/14/2016 23:08 NBP Sys/Ashley/Mean (mmHg): 120 (QS system process) : 70 (QS system process) : 89 (QS system process) Pulse: 85 (QS system process) Datetime: 05/14/2016 23:03 NBP Sys/Ashley/Mean (mmHg): 115 (QS system process) : 60 (QS system process) : 81 (QS system process) Pulse: 75 (QS system process) Datetime: 05/14/2016 23:00 Uterine Activity Monitor Mode: External (Cristiana Lattibeaudeir, RN) Frequency (min): 2.5-4.5 (Cristiana Lattibeaudeir, RN) Quality: Moderate (Cristiana Lattibeaudeir, RN) Duration (sec): 70-90 (Cristiana Lattibeaudeir, RN) Resting Tone (Palpate): Relaxed (Cristiana Lattibeaudeir, RN) Assessment A Monitor Mode: External US (Cristiana Lattibeaudeir, RN) FHR Baseline Rate : 130 (Cristiana Lattibeaudeir, RN) Variability: Moderate 6-25 bpm (Cristiana Lattibeaudeir, RN) Accelerations: 15X15 (Cristiana Lattibeaudeir, RN) Datetime: 05/14/2016 22:59 NBP Sys/Ashley/Mean (mmHg): 123 (QS system process) : 57 (QS system process) : 78 (QS system process) Pulse: 75 (QS system process) Datetime: 05/14/2016 22:52 NBP Sys/Ashley/Mean (mmHg): 111 (QS system process) : 66 (QS system process) : 85 (QS system process) Pulse: 85 (QS system process) Datetime: 05/14/2016 22:49 NBP Sys/Ashley/Mean (mmHg): 110 (QS system process) : 66 (QS system process) : 78 (QS system process) Pulse: 88 (QS system process) Datetime: 05/14/2016 22:41 NBP Sys/Ashley/Mean (mmHg): 118 (QS system process) : 59 (QS system process) : 81 (QS system process) Pulse: 93 (QS system process) Datetime: 05/14/2016 22:39 NBP Sys/Ashley/Mean (mmHg): 113 (QS system process) : 55 (QS system process) : 79 (QS system process) Pulse: 103 (QS system process) Datetime: 05/14/2016 22:37 NBP Sys/Ashley/Mean (mmHg): 119 (QS system process) : 63 (QS system process) : 85 (QS system process) Pulse: 63 (QS system process) Datetime: 05/14/2016 22:35 NBP Sys/Ashley/Mean (mmHg): 114 (QS system process) : 60 (QS system process) : 81 (QS system process) Pulse: 79 (QS system process) Datetime: 05/14/2016 22:32 NBP Sys/Ashley/Mean (mmHg): 107 (QS system process) : 58 (QS system process) : 75 (QS system process) Pulse: 78 (QS system process) Datetime: 05/14/2016 22:31 NBP Sys/Ashley/Mean (mmHg): 102 (QS system process) : 56 (QS system process) : 73 (QS system process) Pulse: 73 (QS system process) Datetime: 05/14/2016 22:30 Uterine Activity Monitor Mode: External (Cristiana Lattibeaudeir, RN) Quality: Moderate (Cristiana Lattibeaudeir, RN) Resting Tone (Palpate): Relaxed (Cristiana Lattibeaudeir, RN) Contraction Comments: unable to determine, pt sitting for epidural (Cristiana Lattibeaudeir, RN) Assessment A Monitor Mode: External US (Cristiana Lattibeaudeir, RN) FHR Baseline Rate : 130 (Cristiana Lattibeaudeir, RN) Variability: Minimal - Undetectable to <=5 bpm (Cristiana Lattibeaudeir, RN) Accelerations: 10X10 (Cristiana Lattibeaudeir, RN) Datetime: 05/14/2016 22:29 NBP Sys/Ashley/Mean (mmHg): 109 (QS system process) : 60 (QS system process) : 79 (QS system process) Pulse: 78 (QS system process) Datetime: 05/14/2016 22:26 NBP Sys/Ashley/Mean (mmHg): 116 (QS system process) : 66 (QS system process) : 85 (QS system process) Pulse: 93 (QS system process) Datetime: 05/14/2016 22:24 NBP Sys/Ashley/Mean (mmHg): 111 (QS system process) : 63 (QS system process) : 80 (QS system process) Pulse: 83 (QS system process) Datetime: 05/14/2016 22:23 NBP Sys/Ashley/Mean (mmHg): 108 (QS system process) : 62 (QS system process) : 78 (QS system process) Pulse: 81 (QS system process) Datetime: 05/14/2016 22:21 NBP Sys/Ashley/Mean (mmHg): 112 (QS system process) : 66 (QS system process) : 83 (QS system process) Pulse: 84 (QS system process) Datetime: 05/14/2016 22:19 NBP Sys/Ashley/Mean (mmHg): 114 (QS system process) : 61 (QS system process) : 81 (QS system process) Pulse: 86 (QS system process) Datetime: 05/14/2016 22:16 NBP Sys/Ashley/Mean (mmHg): 122 (QS system process) : 75 (QS system process) : 92 (QS system process) Pulse: 88 (QS system process) Datetime: 05/14/2016 22:15 NBP Sys/Ashley/Mean (mmHg): 128 (QS system process) : 81 (QS system process) : 98 (QS system process) Pulse: 81 (QS system process) Datetime: 05/14/2016 22:14 NBP Sys/Ashley/Mean (mmHg): 122 (QS system process) : 70 (QS system process) : 89 (QS system process) Pulse: 68 (QS system process) Datetime: 05/14/2016 22:12 NBP Sys/Ashley/Mean (mmHg): 95 (QS system process) : 55 (QS system process) : 72 (QS system process) Pulse: 67 (QS system process) Medication Comments: Ephedrine 10 mg (Cristiana Lattibeaudeir, RN) Datetime: 05/14/2016 22:11 NBP Sys/Ashley/Mean (mmHg): 85 (QS system process) : 43 (QS system process) : 60 (QS system process) Pulse: 78 (QS system process) Datetime: 05/14/2016 22:10 NBP Sys/Ashley/Mean (mmHg): 88 (QS system process) : 40 (QS system process) : 58 (QS system process) Pulse: 73 (QS system process) Datetime: 05/14/2016 22:09 NBP Sys/Ashley/Mean (mmHg): 102 (QS system process) : 53 (QS system process) : 74 (QS system process) Pulse: 75 (QS system process) Vaginal Exam Dilatation (cm): 7.0 (Cristiana Green RN) Effacement (%): 100 (Cristiana Green RN) Station: 0 (Cristiana Green RN) Exam by: Zaida Green RN (Cristiana Green RN) I/O Interventions: Brary Cath Inserted (Cristiana Green RN) Datetime: 05/14/2016 22:08 NBP Sys/Ashley/Mean (mmHg): 102 (QS system process) : 52 (QS system process) : 75 (QS system process) Pulse: 83 (QS system process) Datetime: 05/14/2016 22:07 NBP Sys/Ashley/Mean (mmHg): 114 (QS system process) : 54 (QS system process) : 77 (QS system process) Pulse: 107 (QS system process) Datetime: 05/14/2016 22:06 NBP Sys/Ashley/Mean (mmHg): 119 (QS system process) : 56 (QS system process) : 81 (QS system process) Pulse: 103 (QS system process) Datetime: 05/14/2016 22:05 NBP Sys/Ashley/Mean (mmHg): 123 (QS system process) : 61 (QS system process) : 84 (QS system process) Pulse: 106 (QS system process) Datetime: 05/14/2016 22:02 NBP Sys/Ashley/Mean (mmHg): 111 (QS system process) : 82 (QS system process) : 92 (QS system process) Pulse: 110 (QS system process) Datetime: 05/14/2016 22:01 NBP Sys/Ashley/Mean (mmHg): 110 (QS system process) : 75 (QS system process) : 88 (QS system process) Pulse: 96 (QS system process) Datetime: 05/14/2016 22:00 NBP Sys/Ashley/Mean (mmHg): 120 (QS system process) : 62 (QS system process) : 81 (QS system process) Pulse: 96 (QS system process) Pulse: 90 (QS system process) Pulse: 86 (QS system process) SpO2 (%): 91 (QS system process) SpO2 (%): 88 (QS system process) Uterine Activity Monitor Mode: External (Cristiana Lattibeaudeir, RN) Frequency (min): 2-5.5 (Cristiana Lattibeaudeir, RN) Quality: Moderate (Cristiana Lattibeaudeir, RN) Duration (sec): 60-70 (Cristiana Lattibeaudeir, RN) Resting Tone (Palpate): Relaxed (Cristiana Lattibeaudeir, RN) Assessment A Monitor Mode: External US (Cristiana Lattibeaudeir, RN) FHR Baseline Rate : 130 (Cristiana Lattibeaudeir, RN) Variability: Moderate 6-25 bpm (Cristiana Lattibeaudeir, RN) Accelerations: 15X15 (Cristiana Lattibeaudeir, RN) Patient Care IV/Blood Work: New IV Bag Hung (Cristiana Lattibeaudeir, RN) Datetime: 05/14/2016 21:58 NBP Sys/Ashley/Mean (mmHg): 124 (QS system process) : 69 (QS system process) : 91 (QS system process) Pulse: 83 (QS system process) Datetime: 05/14/2016 21:57 NBP Sys/Ashley/Mean (mmHg): 138 (QS system process) : 79 (QS system process) : 101 (QS system process) Pulse: 98 (QS system process) Anesthesia Epidural Procedure: Cath Placed (Cristiana Lattibeaudeir, RN) Datetime: 05/14/2016 21:56 NBP Sys/Ashley/Mean (mmHg): 142 (QS system process) : 85 (QS system process) : 108 (QS system process) Pulse: 101 (QS system process) Anesthesia Epidural Procedure: Test Dose (Cristiana Lattibeaudeir, RN) Datetime: 05/14/2016 21:54 Pulse: 109 (QS system process) SpO2 (%): 100 (QS system process) Datetime: 05/14/2016 21:52 NBP Sys/Ashley/Mean (mmHg): 148 (QS system process) : 90 (QS system process) : 114 (QS system process) Pulse: 99 (QS system process) Datetime: 05/14/2016 21:49 Pulse: 95 (QS system process) SpO2 (%): 100 (QS system process) SpO2 (%): 91 (QS system process) Datetime: 05/14/2016 21:46 Anesthesia Comments: Dr. Vieira at [facility], [facility]) Datetime: 05/14/2016 21:30 Uterine Activity Monitor Mode: External (Cristiana Lattibeaudeir, RN) Frequency (min): 2-5.5 (Cristiana Lattibeaudeir, RN) Quality: Moderate (Cristiana Lattibeaudeir, RN) Duration (sec): 50-80 (Cristiana Lattibeaudeir, RN) Resting Tone (Palpate): Relaxed (Cristiana Lattibeaudeir, RN) Assessment A Monitor Mode: External US (Cristiana Lattibeaudeir, RN) FHR Baseline Rate : 130 (Cristiana Lattibeaudeir, RN) Variability: Moderate 6-25 bpm (Cristiana Lattibeaudeir, RN) Accelerations: 15X15 (Cristiana Lattibeaudeir, RN) Datetime: 05/14/2016 21:00 Uterine Activity Monitor Mode: External (Cristiana Lattibeaudeir, RN) Frequency (min): irregular (Cristiana Lattibeaudeir, RN) Quality: Moderate (Cristiana Lattibeaudeir, RN) Duration (sec): 40-70 (Cristiana Lattibeaudeir, RN) Resting Tone (Palpate): Relaxed (Cristiana Lattibeaudeir, RN) Assessment A Monitor Mode: External US (Cristiana Lattibeaudeir, RN) FHR Baseline Rate : 130 (Cristiana Lattibeaudeir, RN) Variability: Moderate 6-25 bpm (Cristiana Lattibeaudeir, RN) Accelerations: 15X15 (Cristiana Lattibeaudeir, RN) Datetime: 05/14/2016 20:54 Monitor Interventions for UA: [place] Adjusted (Cristiana Lattibeaudeir, RN) Datetime: 05/14/2016 20:52 Medications Antibiotics: Clindamycin IV 900 mg (Cristiana Lattibeaudeir, RN) Datetime: 05/14/2016 20:51 Patient Care IV/Blood Work: IV Started; IV Bolus Started; IV Infusing per Order; New IV Bag Hung; IV Bag Number @ 1 (Cristiana Lattibeaudeir, RN) Datetime: 05/14/2016 20:47 NBP Sys/Ashley/Mean (mmHg): 142 (QS system process) : 84 (QS system process) : 105 (QS system process) Pulse: 92 (QS system process) Datetime: 05/14/2016 20:45 Vaginal Exam Dilatation (cm): 5.0 (Cristiana Green RN) Effacement (%): 100 (Cristiana Green RN) Station: -1 (Cristiana Green RN) Exam by: Zaida Green RN (Cristiana Green RN) Membrane Status: Bulging (Cristiana Green RN) Datetime: 05/14/2016 20:30 Uterine Activity Monitor Mode: External (Cristiana Lattibeaudeir, RN) Frequency (min): x1 (Cristiana Lattibeaudeir, RN) Quality: Moderate (Cristiana Lattibeaudeir, RN) Duration (sec): 60 (Cristiana Lattibeaudeir, RN) Resting Tone (Palpate): Relaxed (Cristiana Lattibeaudeir, RN) Assessment A Monitor Mode: External US (Cristiana Lattibeaudeir, RN) FHR Baseline Rate : 125 (Cristiana Lattibeaudeir, RN) Variability: Moderate 6-25 bpm (Cristiana Lattibeaudeir, RN) Accelerations: 15X15 (Cristiana Lattibeaudeir, RN) Decelerations: None (Cristiana Lattibeaudeir, RN) Datetime: 05/14/2016 20:24 NBP Sys/Ashley/Mean (mmHg): 139 (QS system process) : 93 (QS system process) : 109 (QS system process) Pulse: 90 (QS system process) Datetime: 05/14/2016 20:00 Uterine Activity Monitor Mode: External (Cristiana Lattibeaudeir, RN) Frequency (min): x2 (Cristiana Lattibeaudeir, RN) Quality: Moderate (Cristiana Lattibeaudeir, RN) Duration (sec): 40-50 (Cristiana Lattibeaudeir, RN) Resting Tone (Palpate): Relaxed (Cristiana Lattibeaudeir, RN) Assessment A Monitor Mode: External US (Cristiana Lattibeaudeir, RN) FHR Baseline Rate : 130 (Cristiana Lattibeaudeir, RN) Variability: Moderate 6-25 bpm (Cristiana Lattibeaudeir, RN) Accelerations: 15X15 (Cristiana Lattibeaudeir, RN) Decelerations: None (Cristiana Lattibeaudeir, RN) Datetime: 05/14/2016 19:25 Comments: monitors applied (Cristiana Lattibeaudeir, RN)
[2016-05-15] MEDS: DOCUSATE SODIUM 100 MG CAPSULE PO SCH ×2 (10:13→17:34)
[2016-05-15] MEDS: FERROUS SULFATE 325 MG TABLET PO SCH ×2 (10:14→17:34)
[2016-05-15] MEDS: SENNOSIDES/DOCUSATE 8.6-50 MG 1 EACH TABLET PO SCH (10:14)
[2016-05-15] MEDS: PRENATAL VITAMIN W-O CA NO5/FE FUMARATE/FA CAPSULE PO SCH (10:14)
--- NOTE | 2016-05-15 15:30 | PDOC PROGRESS REPORT ---
Subjective-OB Subjective: Post Delivery Day: 1 30 year old s/p . Ambulating, voiding and without difficulty. Denies any needs at this time Physical Exam (OB) Vital Signs: Temp Pulse Resp BP Pulse Ox 98.4 F 73 15 113/74 100 05/15/16 02:51 05/15/16 02:51 05/15/16 02:51 05/15/16 02:51 05/15/16 02:51 Intake & Output 05/14/16 05/15/16 05/16/16 06:59 06:59 06:59 Weight 72.25 kg - General General Appearance: Appears well In distress: None - PIH/Pre-Eclampsia Clonus: Negative - Episiotomy/Laceration Site Condition: Well Approximated - Lochia Lochia Amount: Scant < 10 ml Lochia Color: Rubra/Red - Abdomen Description: Soft, Round Hernia Present: No Fundal Description: Firm, Midline Fundal Height: u/u - u/2 - Respiratory Respiratory Status: No respiratory distress - Extremities Upper extremity: Normal inspection Lower extremities: Normal inspection - Neurological Cognition: Normal Orientation: AAOx4 - Psychological Associated symptoms: Normal affect - bonding well with baby. Helpful family at bedside, Normal mood Objective-Diagnostic Laboratory: 05/14/16 20:55 05/14/16 05/14/16 05/14/16 19:17 20:55 20:55 WBC 13.7 H RBC 3.99 Hgb 11.8 L Hct 35.5 L MCV 89 MCH 29.6 MCHC 33.4 RDW 14.3 H Plt Count 236 Seg Neutrophils % 71.4 Lymphocytes % 19.1 Monocytes % 7.8 Eosinophils % 1.5 Basophils % 0.2 Absolute Neutrophils 9.8 H Absolute Lymphocytes 2.6 Absolute Monocytes 1.1 Absolute Eosinophils 0.2 Absolute Basophils 0.0 Urine Color STRAW Urine Appearance CLEAR Urine pH 7.0 Ur Specific [place] 1.008 Urine Protein NEGATIVE Urine Glucose (UA) NEGATIVE Urine Ketones NEGATIVE Urine Blood NEGATIVE Urine Nitrite NEGATIVE Ur Leukocyte Esterase NEGATIVE Blood Type O POSITIVE Antibody Screen NEGATIVE Assessment and Plan(PN) - Assessment and Plan (1) Delivery normal Is this a current diagnosis for this admission?: YesPlan: continue stay - Time Spent with Patient Time with patient: Less than 15 minutes Medications reviewed and adjusted accordingly: Yes - Disposition Anticipated Discharge: Home Within: within 24 hours
--- NOTE | 2016-05-15 18:00 | L&D General Admission ---
General Admit Datetime Report Generated by CPN: 05/15/2016 18:00 INFORMATION Patient Age: 30 (03/17/2016 11:11:QS system process) EDC: 06/05/2016 00:00 (03/24/2016 11:53:Edgar Ibrahim RN) LMP: 08/18/2015 00:00 (03/24/2016 11:53:Edgar Ibrahim RN) : 3 (03/24/2016 11:53:Edgar Ibrahim RN) Para: 2 (03/24/2016 11:53:Edgar Ibrahim RN) Term: 2 (03/24/2016 11:53:KOFI Marr) : 0 (03/24/2016 11:53:KOFI Marr) Spontaneous Abortions: 0 (03/24/2016 11:53:KOFI Marr) Induced Abortions: 0 (03/24/2016 11:53:KOFI Marr) Livin (03/24/2016 11:53:KOFI Marr) Cesareans: 0 (03/24/2016 11:53:Cristiana Green RN) VBACs: 0 (03/24/2016 11:53:Cristiana Green RN) Ectopic: 0 (03/24/2016 11:53:Cristiana Green RN) Multiple Births: 0 (03/24/2016 11:53:Cristiana Green RN) Baby, Number in Womb: 1 (03/24/2016 11:53:Cristiana Green RN) CARE [facility] Horse Race [facility] (03/24/2016 11:53:KOFI Marr) Month of 1st Visit: September (03/24/2016 11:53:Cristiana Green RN) Adequate Care: Yes (03/24/2016 11:53:Cristiana Green RN) Prepregnancy Weight (lb): 148 (03/24/2016 11:53:Cristiana Green RN) Prepregnancy Weight (kg): 67.3 (03/24/2016 11:53:QS system process) Height (in): 64 (05/15/2016 09:58:QS system process) ALLERGIES Medication Allergy: No (03/24/2016 11:53:Edgar Ibrahim RN) Medication Allergies: penicillin G (03/24/2016) (03/24/2016 11:55:QS system process) Latex Allergy: Latex Allergies (03/24/2016 11:53:Edgar Ibrahim RN) COMMUNICATION Primary Language: Lao (03/24/2016 11:53:Cristiana Green RN) Medical Tx Preferred Language: Lao (03/24/2016 11:53:Cristiana Geren RN) DEMOGRAPHICS Address: [address] [place] [address] (03/17/2016 11:11:QS system process) Zipcode: [address] (03/17/2016 11:11:QS system process) Home (03/17/2016 11:11:QS system process) SSN: [id number] (03/17/2016 11:11:QS system process) Next of Kin Name: MARCE GIRON (03/17/2016 11:11:QS system process) Next of Kin (03/17/2016 11:11:QS system process) Next of Kin Relationship: SPO (03/17/2016 11:11:QS system process) Date of : 1985 (03/17/2016 11:11:QS system process) Marital Status: (03/17/2016 11:11:QS system process) Sex: Female (03/17/2016 11:11:QS system process) Race: (03/17/2016 11:11:QS system process) Ethnicity: Non- or (03/17/2016 11:11:QS system process) Hindu: Jainism (03/17/2016 11:11:QS system process) DRUG AND ALCOHOL USE Alcohol: No (03/24/2016 11:53:KOFI Marr) Cigarettes: Never Smoker. [id number] (03/24/2016 11:53:KOFI Marr) Marijuana: No (03/24/2016 11:53:KOFI Marr) Cocaine: No (03/24/2016 11:53:KOFI Marr) Other Illicit Drugs: No (03/24/2016 11:53:KOFI Marr) VACCINE HISTORY Influenza Vaccine: Yes (03/24/2016 11:53:Edgar Ibrahim RN) Influenza Date: 01-21-16 (03/24/2016 11:53:Edgar Ibrahim RN) Pneumococcal Vaccine: No (03/24/2016 11:53:Cristiana Green RN) Tetanus Vaccine: Yes (03/24/2016 11:53:Edgar Ibrahim RN) Tetanus Date: 07-30-2014 (03/24/2016 11:53:Edgar Ibrahim RN) Military Source Operations Specialist: [facility] (03/24/2016 11:53:Cristiana Green RN) Feeding Preference: Breast (03/24/2016 11:53:Cristiana Green RN) Benefit of Breast Feed Discussed: Yes (03/24/2016 11:53:Cristiana Green RN) Classes Attended: No (03/24/2016 11:53:Cristiana Green RN) Tubal Ligation: No (03/24/2016 11:53:Cristiana Green RN) Tubal Authorization Signed: N/A (03/24/2016 11:53:Cristiana Green RN) Consent: N/A (03/24/2016 11:53:Cristiana Green RN) Consent Signed: N/A (03/24/2016 11:53:Cristiana Green RN) Pain Management Plans: Epidural (03/24/2016 11:53:Cristiana Green RN) Plans for Labor and Delivery: None (03/24/2016 11:53:Cristiana Green RN) Support Person: Marce (03/24/2016 11:53:Cristiana Green RN) Support Person Relationship: (03/24/2016 11:53:Cristiana Green RN) Cultural/Spritual Practice: Simona (03/24/2016 11:53:Cristiana Green RN) Spir/Cult Dietary Needs: [place] (03/24/2016 11:53:Cristiana Green RN) LIVING SITUATION/DISCHARGE PLAN Living Arrangements: Apartment (03/24/2016 11:53:Cristiana Green RN) Adequate Access to:: Electric; Heat; Refrigeration; Plumbing/Running water; Phone; Transportation (03/24/2016 11:53:Cristiana Green RN) Discharge Repair Miller Person: Marce (03/24/2016 11:53:Cristiana Green RN) Person to Help after Discharge: Marce (03/24/2016 11:53:Cristiana Green RN) Currently Using Commun Resources: Simona (03/24/2016 11:53:Cristiana Green RN) Outside Agency/Postal Service Window Clerk: [place]ona (03/24/2016 11:53:Cristiana Green RN) Car Seat for Discharge: Yes (03/24/2016 11:53:Cristiana Green RN) Adoption Requested: No (03/24/2016 11:53:Cristiana Green RN) Pt Contact w/ Post : N/A (03/24/2016 11:53:Cristiana Green RN) LABS Blood Type: O Positive (03/24/2016 11:53:Cristiana Green RN) Antibody Screen: Negative (03/24/2016 11:53:Cristiana Green RN) Rho(G) this : Not Applicable (03/24/2016 11:53:Cristiana Green RN) Hemoglobin: 11.8 L (05/14/2016 20:55:QS system process) Hematocrit: 35.5 L (05/14/2016 20:55:QS system process) MCV: 89 (05/14/2016 20:55:QS system process) Group Beta Strep: Unknown (03/24/2016 11:53:Cristiana Green RN) RPR/VDRL: Nonreactive (03/24/2016 11:53:Cristiana Green RN) HIV Results: Negative (03/24/2016 11:53:Cristiana Green RN) Hepatitis B: Negative (03/24/2016 11:53:Cristiana Green RN) Rubella: Immune (03/24/2016 11:53:Cristiana Green RN) OB/PREVIOUS HISTORY LMP: 08/18/2015 00:00 (03/24/2016 11:53:Edgar Ibrahim RN) Previous Procedures: Ultrasound; NST (03/24/2016 11:53:Cristiana Green RN) Current Procedures: Ultrasound; NST (03/24/2016 11:53:Cristiana Green RN) History of Previous : No (03/24/2016 11:53:Cristiana Green RN) History of Gestational Diabetes: No (03/24/2016 11:53:Cristiana Green RN) History of PIH: No (03/24/2016 11:53:Cristiana Green RN) History of Incompetent Cervix: No (03/24/2016 11:53:Cristiana Green RN) History of Placenta Previa/Abrup: No (03/24/2016 11:53:Cristiana Green RN) History of Macrosomia: No (03/24/2016 11:53:Cristiana Green RN) History of IUGR: No (03/24/2016 11:53:Cristiana Green RN) History of Hemorrhage: No (03/24/2016 11:53:Cristiana Green RN) History of Loss/Stillborn: No (03/24/2016 11:53:Cristiana Green RN) History of : No (03/24/2016 11:53:Cristiana Green RN) History of D (Rh) Sensitization: No (03/24/2016 11:53:Cristiana Green RN) History Recurrent Loss/Stillborn: No (03/24/2016 11:53:Cristiana Green RN) History Depression/PP Depression: No (03/24/2016 11:53:Cristiana Green RN) History of Uterine Anomaly/ETIENNE: No (03/24/2016 11:53:Cristiana Green RN) History of Infertility: No (03/24/2016 11:53:Cristiana Green RN) History of ART Treatment: No (03/24/2016 11:53:Cristiana Green RN) History of ETIENNE: No (03/24/2016 11:53:Cristiana Green RN) Comments Obstetrical History: G1 04/10/2013 38wk 24hr labor 6.10lb F Epidural [place] G2 10/10/2014 39.1wk 6.15lb M Epidural [facility] G3 Current (03/24/2016 11:53:Edgar Ibrahim RN) MEDICAL HISTORY Med Hx Diabetes: No (03/24/2016 11:53:Cristiana Green RN) Med Hx Hypertension: No (03/24/2016 11:53:Cristiana Green RN) Med Hx Heart Disease: No (03/24/2016 11:53:Cristiana Green RN) Med Hx Autoimmune Disorder: No (03/24/2016 11:53:Cristiana Green RN) Med Hx Kidney Disease/UTI: No (03/24/2016 11:53:Cristiana Green RN) Med Hx Neurologic/Epilepsy: No (03/24/2016 11:53:Cristiana Green RN) Med Hx Psychiatric Disorders: No (03/24/2016 11:53:Cristiana Green RN) Med Hx Hepatitis/Liver Disease: No (03/24/2016 11:53:Cristiana Green RN) Med Hx Varicosities/Phlebitis: No (03/24/2016 11:53:Cristiana Green RN) Med Hx Thyroid Dysfunction: No (03/24/2016 11:53:Cristiana Green RN) Med Hx Trauma/Violence: No (03/24/2016 11:53:Cristiana Green RN) Med Hx Blood Transfusion: No (03/24/2016 11:53:Cristiana Green RN) Med Hx Pulmonary (Asthma,TB): No (03/24/2016 11:53:Cristiana Green RN) Med Hx Breast: No (03/24/2016 11:53:Cristiana Green RN) Med Hx CONTRACTING ENGINEER Surgery: No (03/24/2016 11:53:Cristiana Green RN) Med Hx Hospitalization/Surgery: Yes (03/24/2016 11:53:Cristiana Green RN) Med Hx Anesthetic Complications: No (03/24/2016 11:53:Cristiana Green RN) Med Hx Abnormal Pap Smear: Yes (03/24/2016 11:53:Cristiana Green RN) Other Medical Diseases: No (03/24/2016 11:53:Cristiana Green RN) Med Hx Significant Family Hx: No (03/24/2016 11:53:Cristiana Green RN) Details of Med/Surg Hx: childbirth (03/24/2016 11:53:Cristiana Green RN) INFECTIOUS HISTORY Inf Hx Gonorrhea: No (03/24/2016 11:53:Cristiana Green RN) Inf Hx Chlamydia: No (03/24/2016 11:53:Cristiana Green RN) Inf Hx Syphilis: No (03/24/2016 11:53:Cristiana Green RN) Inf Hx HIV/AIDS: No (03/24/2016 11:53:Cristiana Green RN) Inf Hx Human Papilloma Virus: No (03/24/2016 11:53:Cristiana Green RN) Inf Hx Pt/Partner Genital Herpes: No (03/24/2016 11:53:Cristiana Green RN) Inf Hx Tuberculosis/Exposure: No (03/24/2016 11:53:Cristiana Green RN) Inf Hx Hepatitis B,C: No (03/24/2016 11:53:Cristiana Green RN) Inf Hx Rash or Viral Illness: No (03/24/2016 11:53:Cristiana Green RN) Details of Infectious Hx: Colposcopy 2012 (03/24/2016 11:53:Edgar Ibrahim RN) GENETIC HISTORY Gen Hx Age >=35 at RAE: No (03/24/2016 11:53:Cristiana Green RN) Gen Hx Thalassemia: No (03/24/2016 11:53:Cristiana Green RN) Gen Hx Congenital Heart Defect: No (03/24/2016 11:53:Cristiana Green RN) Gen Hx Neural Tube Defect: No (03/24/2016 11:53:Cristiana Green RN) Gen Hx Down's Syndrome: No (03/24/2016 11:53:Cristiana Green RN) Gen Hx Srinivasan-Sachs: No (03/24/2016 11:53:Cristiana Green RN) Gen Hx Mike: No (03/24/2016 11:53:Cristiana Green RN) Gen Hx Familial Dysautonomia: No (03/24/2016 11:53:Cristiana Green RN) Gen Hx Sickle Cell Disease/Trait: No (03/24/2016 11:53:Cristiana Green RN) Gen Hx Hemophilia/Blood Disorder: No (03/24/2016 11:53:Cristiana Green RN) Gen Hx Muscular Dystrophy: No (03/24/2016 11:53:Cristiana Green RN) Gen Hx Cystic Fibrosis: No (03/24/2016 11:53:Cristiana Green RN) Gen Hx Huntingtons Chorea: No (03/24/2016 11:53:Cristiana Green RN) Gen Hx Mental Retardation/Autism: No (03/24/2016 11:53:Cristiana Green RN) Gen Hx Tested for Fragile X: No (03/24/2016 11:53:Cristiana Green RN) Gen Hx Other Inher/Chromosomal: No (03/24/2016 11:53:Cristiana Green RN) Gen Hx Maternal Metabolic DO: No (03/24/2016 11:53:Cristiana Green RN) Gen Hx Pt Father or FOB Defect: No (03/24/2016 11:53:Cristiana Green RN) Gen Hx Other Genetic History: No (03/24/2016 11:53:Cristiana Green RN) Gen Hx Drugs/Meds since LMP: Yes (03/24/2016 11:53:Cristiana Green RN) Gen Hx Medications: PNV (03/24/2016 11:53:Cristiana Green RN)
--- NOTE | 2016-05-15 18:00 | L&D Current Admission ---
Current Admit Datetime Report Generated by CPN: 05/15/2016 18:00 ADMISSION INFORMATION Current Admit Date/Time: 05/14/2016 19:50 (05/14/2016 19:50:Cristiana Green RN) Reason for Admission: Onset of Labor (05/14/2016 19:50:Cristiana Green RN) Chief Complaint: Decreased Movement; Nausea; Vomiting (03/24/2016 11:55:KOFI Marr) EGA per Dates: 36.6 (05/14/2016 19:50:QS system process) Method of Arrival: Wheelchair (05/14/2016 19:50:Cristiana Green RN) Admitted From: Home (05/14/2016 19:50:Cristiana Green RN) Reason for Induction: Not Applicable (05/14/2016 19:50:Cristiana Green RN) Records Available: Yes (05/14/2016 19:50:Cristiana Green RN) General Admission Information: Reviewed; Updated; Confirmed (05/14/2016:50:Cristiana Green RN) General Admission Reviewed By: Zaida Green RN (05/14/2016 19:50:Cristiana Green RN) BELONGINGS/ADVANCED DIRECTIVES Valuables/Personal Effects: Purse/Wallet; Cell Phone (05/14/2016 19:50:Cristiana Green RN) Disposition of Belongings: Kept with Patient (05/14/2016 19:50:Cristiana Green RN) Advance Direct for Healthcare: No, and Wants No Information (05/14/2016 19:50:Cristiana Green RN) Durable Power of Stamps Or Coins Salesperson: No (05/14/2016 19:50:Cristiana Green RN) Living Will: No (05/14/2016 19:50:Cristiana Green RN) Organ Donor: Undecided (05/14/2016 19:50:Cristiana Green RN) Pt Rights Information Given: Yes (05/14/2016 19:50:Cristiana Green RN) Pt Understands Pt Rights: Yes (05/14/2016 19:50:Cristiana Green RN) LEARNING ASSESSMENT Knowledge Level: Understands L_D Process; Understands Care Activities; Had Pre-Hospital Education; Understands Diagnosis (05/14/2016 19:50:Cristiana Green RN) Barriers to Learning: None (05/14/2016 19:50:Cristiana Green RN) Learning Readiness: Motivated (05/14/2016 19:50:Cristiana Green RN) Learns Best By: 1 to 1 Instruction; Reading; Videos; Demonstration (05/14/2016 19:50:Cristiana Green RN) Learning Needs: Labor and Delivery Process; Pain Management; Symptoms to Report; Community Resources (05/14/2016 19:50:Cristiana Green RN) DOMESTIC VIOLANCE SCREENING Dom Viol Threatened/Hurt: No (05/14/2016 19:50:Cristiana Green RN) Hx of Abuse/Neglect past 2yrs: No (05/14/2016 19:50:Cristiana Green RN) Feel Unsafe Going Home: No (05/14/2016 19:50:Cristiana Green RN) Addt'l Observ Indicating Abuse: No (05/14/2016 19:50:Cristiana Green RN) Reason Unable to Complete Screen: N/A, Screen Completed (05/14/2016 19:50:Cristiana Green RN) Considered Personal Harm/Suicide: No (05/14/2016 19:50:Cristiana Green RN) NUTRITIONAL/FUNCTIONAL SCREENING Problem with Appetite >5 Days: No (05/14/2016 19:50:Cristiana Green RN) Chew/Swallow Difficulties: No (05/14/2016 19:50:Cristiana Green RN) Inappropriate Wt Gain/Loss: No (05/14/2016 19:50:Cristiana Green RN) Presence Skin Breakdown/Ulcer: No (05/14/2016 19:50:Cristiana Green RN) Special Diet: No (05/14/2016 19:50:Cristiana Green RN) Pt Requests Broadcast Designer Visit: No (05/14/2016 19:50:Cristiana Green RN) Hx of Any of the Following?: N/A (05/14/2016 19:50:Cristiana Green RN) New Diagnosis of: N/A (05/14/2016 19:50:Cristiana Green RN) Requires Assist w/Ambulation: No (05/14/2016 19:50:Cristiana Green RN) Uses Assist Device to Ambulate: No (05/14/2016 19:50:Cristiana Green RN) Pt Requires Help w/ADL's: No (05/14/2016 19:50:Cristiana Green RN)
[2016-05-15] MEDS: ACETAMINOPHEN WITH CODEINE #3 TABLET PO PRN (23:24)
[2016-05-16] MEDS: IBUPROFEN 800 MG TABLET PO SCH ×3 (05:36→21:29)
--- NOTE | 2016-05-16 06:00 | L&D General Admission ---
General Admit Datetime Report Generated by CPN: 05/16/2016 06:00 INFORMATION Patient Age: 30 (03/17/2016 11:11:QS system process) EDC: 06/05/2016 00:00 (03/24/2016 11:53:Edgar Ibrahim RN) LMP: 08/18/2015 00:00 (03/24/2016 11:53:Edgar Ibrahim RN) : 3 (03/24/2016 11:53:Edgar Ibrahim RN) Para: 2 (03/24/2016 11:53:Edgar Ibrahim RN) Term: 2 (03/24/2016 11:53:KOFI Marr) : 0 (03/24/2016 11:53:KOFI Marr) Spontaneous Abortions: 0 (03/24/2016 11:53:KOFI Marr) Induced Abortions: 0 (03/24/2016 11:53:KOFI Marr) Livin (03/24/2016 11:53:KOFI Marr) Cesareans: 0 (03/24/2016 11:53:Cristiana Green RN) VBACs: 0 (03/24/2016 11:53:Cristiana Green RN) Ectopic: 0 (03/24/2016 11:53:Cristiana Green RN) Multiple Births: 0 (03/24/2016 11:53:Cristiana Green RN) Baby, Number in Womb: 1 (03/24/2016 11:53:Cristiana Green RN) CARE Primary Supervisor [employer]: [facility] (03/24/2016 11:53:KOFI Marr) Month of 1st Visit: September (03/24/2016 11:53:Cristiana Green RN) Adequate Care: Yes (03/24/2016 11:53:Cristiana Green RN) Prepregnancy Weight (lb): 148 (03/24/2016 11:53:Cristiana Green RN) Prepregnancy Weight (kg): 67.3 (03/24/2016 11:53:QS system process) Height (in): 64 (05/15/2016 09:58:QS system process) ALLERGIES Medication Allergy: No (03/24/2016 11:53:Edgar Ibrahim RN) Medication Allergies: penicillin G (03/24/2016) (03/24/2016 11:55:QS system process) Latex Allergy: Latex Allergies (03/24/2016 11:53:Edgar Ibrahim RN) COMMUNICATION Primary Language: Czech (03/24/2016 11:53:Cristiana Green RN) Medical Tx Preferred Language: Czech (03/24/2016 11:53:Cristiana Green RN) DEMOGRAPHICS Address: [address] [place] [address] (03/17/2016 11:11:QS system process) Zipcode: [address] (03/17/2016 11:11:QS system process) Home (03/17/2016 11:11:QS system process) SSN: [id number] (03/17/2016 11:11:QS system process) Next of Kin Name: MARCE GIRON (03/17/2016 11:11:QS system process) Next of Kin (03/17/2016 11:11:QS system process) Next of Kin Relationship: SPO (03/17/2016 11:11:QS system process) Date of : 1985 (03/17/2016 11:11:QS system process) Marital Status: (03/17/2016 11:11:QS system process) Sex: Female (03/17/2016 11:11:QS system process) Race: (03/17/2016 11:11:QS system process) Ethnicity: Non- or (03/17/2016 11:11:QS system process) Jehovah'S Witness: Mosque (03/17/2016 11:11:QS system process) DRUG AND ALCOHOL USE Alcohol: No (03/24/2016 11:53:KOFI Marr) Cigarettes: Never Smoker. [id number] (03/24/2016 11:53:KOFI Marr) Marijuana: No (03/24/2016 11:53:KOFI Marr) Cocaine: No (03/24/2016 11:53:KOFI Marr) Other Illicit Drugs: No (03/24/2016 11:53:KOFI Marr) VACCINE HISTORY Influenza Vaccine: Yes (03/24/2016 11:53:Edgar Ibrahim RN) Influenza Date: 01-21-16 (03/24/2016 11:53:Edgar Ibrahim RN) Pneumococcal Vaccine: No (03/24/2016 11:53:Cristiana Green RN) Tetanus Vaccine: Yes (03/24/2016 11:53:Edgar Ibrahim RN) Tetanus Date: 07-30-2014 (03/24/2016 11:53:Edgar Ibrahim RN) Slabbing Machine Operator: [facility] (03/24/2016 11:53:Cristiana Green RN) Feeding Preference: Breast (03/24/2016 11:53:Cristiana Green RN) Benefit of Breast Feed Discussed: Yes (03/24/2016 11:53:Cristinaa Green RN) Classes Attended: No (03/24/2016 11:53:Cristiana Green RN) Tubal Ligation: No (03/24/2016 11:53:Cristiana Green RN) Tubal Authorization Signed: N/A (03/24/2016 11:53:Cristiana Green RN) Consent: N/A (03/24/2016 11:53:Cristiana Green RN) Consent Signed: N/A (03/24/2016 11:53:Cristiana Green RN) Pain Management Plans: Epidural (03/24/2016 11:53:Cristiana Green RN) Plans for Labor and Delivery: None (03/24/2016 11:53:Cristiana Green RN) Support Person: Marce (03/24/2016 11:53:Cristiana Green RN) Support Person Relationship: (03/24/2016 11:53:Cristiana Green RN) Cultural/Spritual Practice: Simona (03/24/2016 11:53:Cristiana Green RN) Spir/Cult Dietary Needs: [place]ona (03/24/2016 11:53:Cristiana Green RN) LIVING SITUATION/DISCHARGE PLAN Living Arrangements: Apartment (03/24/2016 11:53:Cristiana Green RN) Adequate Access to:: Electric; Heat; Refrigeration; Plumbing/Running water; Phone; Transportation (03/24/2016 11:53:Cristiana Green RN) Discharge Machine Ironer Person: Marce (03/24/2016 11:53:Cristiana Green RN) Person to Help after Discharge: Marce (03/24/2016 11:53:Cristiana Green RN) Currently Using Commun Resources: Simona (03/24/2016 11:53:Cristiana Green RN) Outside Agency/Recreation Activities Coordinator: [place]ona (03/24/2016 11:53:Cristiana Green RN) Car Seat for Discharge: Yes (03/24/2016 11:53:Cristiana Green RN) Adoption Requested: No (03/24/2016 11:53:Cristiana Green RN) Pt Contact w/ Post : N/A (03/24/2016 11:53:Cristiana Green RN) LABS Blood Type: O Positive (03/24/2016 11:53:Cristiana Green RN) Antibody Screen: Negative (03/24/2016 11:53:Cristiana Green RN) Rho(G) this : Not Applicable (03/24/2016 11:53:Cristiana Green RN) Hemoglobin: 11.8 L (05/14/2016 20:55:QS system process) Hematocrit: 35.5 L (05/14/2016 20:55:QS system process) MCV: 89 (05/14/2016 20:55:QS system process) Group Beta Strep: Unknown (03/24/2016 11:53:Cristiana Green RN) RPR/VDRL: Nonreactive (03/24/2016 11:53:Cristiana Green RN) HIV Results: Negative (03/24/2016 11:53:Cristiana Green RN) Hepatitis B: Negative (03/24/2016 11:53:Cristiana Green RN) Rubella: Immune (03/24/2016 11:53:Cristiana Green RN) OB/PREVIOUS HISTORY LMP: 08/18/2015 00:00 (03/24/2016 11:53:Edgar Ibrahim RN) Previous Procedures: Ultrasound; NST (03/24/2016 11:53:Cristiana Green RN) Current Procedures: Ultrasound; NST (03/24/2016 11:53:Cristiana Green RN) History of Previous : No (03/24/2016 11:53:Cristiana Green RN) History of Gestational Diabetes: No (03/24/2016 11:53:Cristiana Green RN) History of PIH: No (03/24/2016 11:53:Cristiana Green RN) History of Incompetent Cervix: No (03/24/2016 11:53:Cristiana Green RN) History of Placenta Previa/Abrup: No (03/24/2016 11:53:Cristiana Green RN) History of Macrosomia: No (03/24/2016 11:53:Cristiana Green RN) History of IUGR: No (03/24/2016 11:53:Cristiana Green RN) History of Hemorrhage: No (03/24/2016 11:53:Cristiana Green RN) History of Loss/Stillborn: No (03/24/2016 11:53:Cristiana Green RN) History of : No (03/24/2016 11:53:Cristiana Green RN) History of D (Rh) Sensitization: No (03/24/2016 11:53:Cristiana Green RN) History Recurrent Loss/Stillborn: No (03/24/2016 11:53:Cristiana Green RN) History Depression/PP Depression: No (03/24/2016 11:53:Cristiana Green RN) History of Uterine Anomaly/ETIENNE: No (03/24/2016 11:53:Cristiana Green RN) History of Infertility: No (03/24/2016 11:53:Cristiana Green RN) History of ART Treatment: No (03/24/2016 11:53:Cristiana Green RN) History of ETIENNE: No (03/24/2016 11:53:Cristiana Green RN) Comments Obstetrical History: G1 04/10/2013 38wk 24hr labor 6.10lb F Epidural [place] G2 10/10/2014 39.1wk 6.15lb M Epidural [facility] G3 Current (03/24/2016 11:53:Edgar Ibrahim RN) MEDICAL HISTORY Med Hx Diabetes: No (03/24/2016 11:53:Cristiana Green RN) Med Hx Hypertension: No (03/24/2016 11:53:Cristiana Green RN) Med Hx Heart Disease: No (03/24/2016 11:53:Cristiana Green RN) Med Hx Autoimmune Disorder: No (03/24/2016 11:53:Cristiana Green RN) Med Hx Kidney Disease/UTI: No (03/24/2016 11:53:Cirstiana Green RN) Med Hx Neurologic/Epilepsy: No (03/24/2016 11:53:Cristiana Green RN) Med Hx Psychiatric Disorders: No (03/24/2016 11:53:Cristiana Green RN) Med Hx Hepatitis/Liver Disease: No (03/24/2016 11:53:Cristiana Green RN) Med Hx Varicosities/Phlebitis: No (03/24/2016 11:53:Cristiana Green RN) Med Hx Thyroid Dysfunction: No (03/24/2016 11:53:Cristiana Green RN) Med Hx Trauma/Violence: No (03/24/2016 11:53:Cristiana Green RN) Med Hx Blood Transfusion: No (03/24/2016 11:53:Cristiana Green RN) Med Hx Pulmonary (Asthma,TB): No (03/24/2016 11:53:Cristiana Green RN) Med Hx Breast: No (03/24/2016 11:53:Cristiana Green RN) Med Hx SLIVER CUTTER Surgery: No (03/24/2016 11:53:Cristiana Green RN) Med Hx Hospitalization/Surgery: Yes (03/24/2016 11:53:Cristiana Green RN) Med Hx Anesthetic Complications: No (03/24/2016 11:53:Cristiana Green RN) Med Hx Abnormal Pap Smear: Yes (03/24/2016 11:53:Cristiana Green RN) Other Medical Diseases: No (03/24/2016 11:53:Cristiana Green RN) Med Hx Significant Family Hx: No (03/24/2016 11:53:Cristiana Green RN) Details of Med/Surg Hx: childbirth (03/24/2016 11:53:Cristiana Green RN) INFECTIOUS HISTORY Inf Hx Gonorrhea: No (03/24/2016 11:53:Cristiana Green RN) Inf Hx Chlamydia: No (03/24/2016 11:53:Cristiana Green RN) Inf Hx Syphilis: No (03/24/2016 11:53:Cristiana Green RN) Inf Hx HIV/AIDS: No (03/24/2016 11:53:Cristiana Green RN) Inf Hx Human Papilloma Virus: No (03/24/2016 11:53:Cristiana Green RN) Inf Hx Pt/Partner Genital Herpes: No (03/24/2016 11:53:Cristiana Green RN) Inf Hx Tuberculosis/Exposure: No (03/24/2016 11:53:Cristiana Green RN) Inf Hx Hepatitis B,C: No (03/24/2016 11:53:Cristiana Green RN) Inf Hx Rash or Viral Illness: No (03/24/2016 11:53:Cristiana Green RN) Details of Infectious Hx: Colposcopy 2012 (03/24/2016 11:53:Edgar Ibrahim RN) GENETIC HISTORY Gen Hx Age >=35 at RAE: No (03/24/2016 11:53:Cristiana Green RN) Gen Hx Thalassemia: No (03/24/2016 11:53:Cristiana Green RN) Gen Hx Congenital Heart Defect: No (03/24/2016 11:53:Cristiana Green RN) Gen Hx Neural Tube Defect: No (03/24/2016 11:53:Cristiana Green RN) Gen Hx Down's Syndrome: No (03/24/2016 11:53:Cristiana Green RN) Gen Hx Srinivasan-Sachs: No (03/24/2016 11:53:Cristiana Green RN) Gen Hx Mike: No (03/24/2016 11:53:Cristiana Green RN) Gen Hx Familial Dysautonomia: No (03/24/2016 11:53:Cristiana Green RN) Gen Hx Sickle Cell Disease/Trait: No (03/24/2016 11:53:Cristiana Green RN) Gen Hx Hemophilia/Blood Disorder: No (03/24/2016 11:53:Cristiana Green RN) Gen Hx Muscular Dystrophy: No (03/24/2016 11:53:Cristiana Green RN) Gen Hx Cystic Fibrosis: No (03/24/2016 11:53:Cristiana Green RN) Gen Hx Huntingtons Chorea: No (03/24/2016 11:53:Cristiana Green RN) Gen Hx Mental Retardation/Autism: No (03/24/2016 11:53:Cristiana Green RN) Gen Hx Tested for Fragile X: No (03/24/2016 11:53:Cristiana Green RN) Gen Hx Other Inher/Chromosomal: No (03/24/2016 11:53:Cristiana Green RN) Gen Hx Maternal Metabolic DO: No (03/24/2016 11:53:Cristiana Green RN) Gen Hx Pt Father or FOB Defect: No (03/24/2016 11:53:Cristiana Green RN) Gen Hx Other Genetic History: No (03/24/2016 11:53:Cristiana Green RN) Gen Hx Drugs/Meds since LMP: Yes (03/24/2016 11:53:Cristiana Green RN) Gen Hx Medications: PNV (03/24/2016 11:53:Cristiana Green RN)
--- NOTE | 2016-05-16 06:00 | L&D Current Admission ---
Current Admit Datetime Report Generated by CPN: 05/16/2016 06:00 ADMISSION INFORMATION Current Admit Date/Time: 05/14/2016 19:50 (05/14/2016 19:50:Cristiana Green RN) Reason for Admission: Onset of Labor (05/14/2016 19:50:Cristiana Green RN) Chief Complaint: Decreased Movement; Nausea; Vomiting (03/24/2016 11:55:KOFI Marr) EGA per Dates: 36.6 (05/14/2016 19:50:QS system process) Method of Arrival: Wheelchair (05/14/2016 19:50:Cristiana Green RN) Admitted From: Home (05/14/2016 19:50:Cristiana Green RN) Reason for Induction: Not Applicable (05/14/2016 19:50:Cristiana Green RN) Records Available: Yes (05/14/2016 19:50:Cristiana Green RN) General Admission Information: Reviewed; Updated; Confirmed (05/14/2016:50:Cristiana Green RN) General Admission Reviewed By: Zaida Green RN (05/14/2016 19:50:Cristiana Green RN) BELONGINGS/ADVANCED DIRECTIVES Valuables/Personal Effects: Purse/Wallet; Cell Phone (05/14/2016 19:50:Cristiana Green RN) Disposition of Belongings: Kept with Patient (05/14/2016 19:50:Cristiana Green RN) Advance Direct for Healthcare: No, and Wants No Information (05/14/2016 19:50:Cristiana Green RN) Durable Power of Lifestyle Coordinator: No (05/14/2016 19:50:Cristiana Green RN) Living Will: No (05/14/2016 19:50:Cristiana Green RN) Organ Donor: Undecided (05/14/2016 19:50:Cristiana Green RN) Pt Rights Information Given: Yes (05/14/2016 19:50:Cristiana Green RN) Pt Understands Pt Rights: Yes (05/14/2016 19:50:Cristiana Green RN) LEARNING ASSESSMENT Knowledge Level: Understands L_D Process; Understands Care Activities; Had Pre-Hospital Education; Understands Diagnosis (05/14/2016 19:50:Cristiana Green RN) Barriers to Learning: None (05/14/2016 19:50:Cristiana Green RN) Learning Readiness: Motivated (05/14/2016 19:50:Cristiana Green RN) Learns Best By: 1 to 1 Instruction; Reading; Videos; Demonstration (05/14/2016 19:50:Cristiana Green RN) Learning Needs: Labor and Delivery Process; Pain Management; Symptoms to Report; Community Resources (05/14/2016 19:50:Cristiana Green RN) DOMESTIC VIOLANCE SCREENING Dom Viol Threatened/Hurt: No (05/14/2016 19:50:Cristiana Green RN) Hx of Abuse/Neglect past 2yrs: No (05/14/2016 19:50:Cristiana Green RN) Feel Unsafe Going Home: No (05/14/2016 19:50:Cristiana Green RN) Addt'l Observ Indicating Abuse: No (05/14/2016 19:50:Cristiana Green RN) Reason Unable to Complete Screen: N/A, Screen Completed (05/14/2016 19:50:Cristiana Green RN) Considered Personal Harm/Suicide: No (05/14/2016 19:50:Cristiana Green RN) NUTRITIONAL/FUNCTIONAL SCREENING Problem with Appetite >5 Days: No (05/14/2016 19:50:Cristiana Green RN) Chew/Swallow Difficulties: No (05/14/2016 19:50:Cristiana Green RN) Inappropriate Wt Gain/Loss: No (05/14/2016 19:50:Cristiana Green RN) Presence Skin Breakdown/Ulcer: No (05/14/2016 19:50:Cristiana Green RN) Special Diet: No (05/14/2016 19:50:Cristiana Green RN) Pt Requests Senior Care Assistant Visit: No (05/14/2016 19:50:Cristiana Green RN) Hx of Any of the Following?: N/A (05/14/2016 19:50:Cristiana Green RN) New Diagnosis of: N/A (05/14/2016 19:50:Cristiana Green RN) Requires Assist w/Ambulation: No (05/14/2016 19:50:Cristiana Green RN) Uses Assist Device to Ambulate: No (05/14/2016 19:50:Cristiana Green RN) Pt Requires Help w/ADL's: No (05/14/2016 19:50:Cristiana Green RN)
--- NOTE | 2016-05-16 06:15 | L&D Care Plan ---
LD CARE PLANS Datetime Report Generated by CPN: 05/16/2016 06:15 Datetime: 05/14/2016 19:50 Pain State: Actual (Cristiana Green RN) Related To: Labor and Delivery Process; Treatment and Procedures; Post (Cristiana Green RN) Goal(s): Patients Pain will be Assessed and Managed; Patient will Verbalize Adequate Relief of Pain or the Ability to [place] with Current Pain (Cristiana Green RN) Interventions: Assess Pain Severity on Scale of 0 (None) to 5 (Severe); Assess Type, Location and Intensity of Pain Each Time Client Reports Discomfort and Notify Provider if Unusal Pain Develops; Encourage Proper Breathing and Relaxation Techniques; Offer Alternatives Such as Repositioning, Calm Environment, Massages, Diversional Activities, Ice Pack, Splinting, and Ambulation; Administer Analgesics as Ordered; Assist with Epidural Placement as Appropriate; Evaluate Therapeutic Effectiveness of Medication and Treatments (Cristiana Green RN) Outcome: Patient will Report Absence or Relief of Pain Consistent with Established Pain Goal (Cristiana Green RN) Status: Ongoing (Cristiana Green RN) Outcome: Patient will have a Decrease in Signs and Symptoms of Discomfort (Cristiana Green RN) Status: Ongoing (Cristiana Green RN) Outcome: Pain will be Controlled During Procedures (Cristiana Green RN) Status: Ongoing (Cristiana Green RN) Anxiety State: Risk For (Cristiana Green RN) Related To: Labor and Delivery Process; Fear of Unknown; Situational Crisis; Significant Life Event (Cristiana Green RN) Goal(s): Patient will have Decreased Anxiety and be able to Function at Acceptable Levels (Cristiana Green RN) Interventions: Assess Verbal and Nonverbal Behavioral Indicators of Anxiety; Assist Patient to Identify and Verbalize Symptoms of Anxiety; Identify and Demonstrate Techniques to Control Anxiety; Assist Patient with Coping Mechanisms to Manage Anxiety; Provide Theraputic Touch for the Patient; Explain to Patient, Using a Calm Reassuring Approach and Nonmedical Terms, All Activities, Procedures, and Concerns; Instruct Patient and Family about Post Discharge Care, Limitations, Symptoms to Report and Resources Available (Cristiana Green RN) Outcome: Patient will Identify, Verbalize and Demonstrate Techniques to Control Anxiety (Cristiana Green RN) Status: Ongoing (Cristiana Green RN) Outcome: Patient's Posture, Facial Expressions, Gestures and Activity Level will Reflect Decreased Anxiety (Cristiana Green RN) Status: Ongoing (Cristiana Green RN) Outcome: Patient will Verbalize a Sense of Control and/or Acceptance of the Situation (Cristiana Green RN) Status: Ongoing (Cristiana Green RN) Outcome: Patient will Identify and Utilize Support Person (Cristiana Green RN) Status: Ongoing (Cristiana Green RN) Knowledge Deficit State: Risk For (Cristiana Green RN) Related To: Labor and Delivery Process (Cristiana Green RN) Goal(s): Patient will Accurately Verbalize Understanding of Plan of Care and Treatment; Patient and Family will Accurately Verbalize Understanding of the Disease Process (Cristiana Green RN) Interventions: Assess Motivation and Willingness of Patient/Family to Learn; Assess Preferred Learning Mode: One to One Instruction, Reading, Videos, Group Discussion or Demonstration; Assess Barriers to Learning: Pain, Emotional State, Language Barrier, Cognitive Impairment, Visual or Hearing Deficits; Assess Patient and Family Knowledge of Disease Process, Medications and Treatment; Discuss Therapy and/or Treatment Options, Describe Rationale Behind Management, Therapy and Treatment Recommendations; Instruct Patient and Family on Signs and Symptoms to Report; Instruct Patient and Family on Medication Effects and Side Effects; Provide Appropriate and Timely Education Using Multiple Techniques; Provide Patient and Family with Support Group Information and Resources; Give Clear and Thorough Explanations and Demonstrations (Cristiana rGeen RN) Outcome: Patient and Family will Verbalize Understanding of Condition, Treatment and Signs and Symptoms to Report (Cristiana Green RN) Status: Ongoing (Cristiana Green RN) Outcome: Patient will Identify Perceived Learning Needs and Express Motivation to Learn (Cristiana Green RN) Status: Ongoing (Cristiana Green RN) Outcome: Patient will Verbalize Understanding of Desired Content, and/or Performs Desired Skill Prior to Discharge (Cristiana Green RN) Status: Ongoing (Cristiana Green RN) Infection State: Risk For (Cristiana Green RN) Related To: Prolonged Labor or Induction; Invasive Procedures; Altered Tissue Integrity (Cristiana Green RN) Goal(s): The Patient will be Free of Infection, Vital Signs Stable and Lab Work within Normal Parameters (Cristiana Green RN) Interventions: Instruct and Reinforce Proper Handwashing, Hygiene, and Care Techniques to Patient and Family; Monitor Vital Signs; Monitor Patient for the Following Signs of Infection: Fever, Abdominal Tenderness, Unusual Discharge; Monitor Aminiotic Fluid, Urine and Lochia for Color and Odor; Observe Wounds, Incisions and Invasive Line Sites for Redness, Drainage and Edema; Assess IV Sites per Hospital Policy; Monitor Lab and Test Results and Notify Provider of Abnormal Findings; Assess Nutritional Status and Promote Good Nutrition (Crisitana Green RN) Outcome: Patient will Remain Free of Infection (Cristiana Green RN) Status: Ongoing (Cristiana Green RN) Outcome: Infection will be Recognized Early to Allow for Prompt Treatment (Cristiana Green RN) Status: Ongoing (Cristiana Green RN) Outcome: Patient will have Vital Signs Within Expected Range (Cristiana Green RN) Status: Ongoing (Cristiana Green RN) Fluid Volume State: Not Applicable (Cristiana Green RN) Injury State: Risk For (Cristiana Green RN) Related To: Labor and Delivery Process (Cristiana Green RN) Goal(s): Patient will Remain Free from Injury (Cristiana Green RN) Interventions: Monitoring as per Hospital Protocol; Assess Neurological Status; Perform Risk Assessment of Patients with Induction and ; Perform Fall Risk Assessment and Prevention per Hospital Protocol; Perform DVT Risk Assessment and Prophylaxis per Hospital Protocol; Ensure that Oxygen, Suction, and Resuscitation Medications and Equipment are Readily Available; Confirm Patient ID Prior to Procedure(s) and Medication Administration per Hospital Policy (Cristiana Green RN) Outcome: Successful Fall Risk Prevention (Cristiana Green RN) Status: Ongoing (Cristiana Green RN) Outcome: Patient will Deliver Infant without Adverse Sequela (Cristiana Green RN) Status: Ongoing (Cristiana Green RN) Outcome: Patient's Neurological Status will Remain Stable (Cristiana Green RN) Status: Ongoing (Cristiana Green RN) Impaired Skin Integrity State: Risk For (Cristiana Green RN) Related To: Vaginal Delivery; Altered Tissue Integrity; Invasive Procedures (Cristiana Green RN) Goal(s): Patient will Maintain Optimal Skin Integrity, Free of Breakdown, Injury or Infection (Cristiana Green RN) Interventions: Complete Screening for Pressure Ulcer Risk and Initiate Protocol per Hospital Policy; Monitor Site of Skin Impairment for Color Changes, Redness, Swelling, Warmth, Pain or Other Signs of Infection; Encourage and Assist with Position Changes; Monitor Patient's Mobility Status; Provide Adequate Nutrition and Fluids; Teach Patient Appropriate Hygienic Care; Teach Patient/Family Skin Care Management (Cristiana Green RN) Outcome: Patient will not have Evidence of Injury Such as Skin Breakdown, Scrapes, Cuts, or Bruising (Cristiana Green RN) Status: Ongoing (Cristiana Green RN) Outcome: Patient will Report Any Altered Sensation or Pain at Site of Skin Impairment (Cristiana Green RN) Status: Ongoing (Cristiana Green RN) Outcome: Patients Incisions and Wounds will be without Signs or Symptoms of Infection (Cristiana Green RN) Status: Ongoing (Cristiana Green RN) Outcome: Patient will Demonstrate Understanding of Plan to Heal Skin and Prevent Reinjury and Verbalize Risk Factors (Cristiana Green RN) Status: Ongoing (Cristiana Green RN) Parenting Impaired State: Not Applicable (Cristiana Green RN) Nutrition State: Risk For (Cristiana Green RN) Related To: (Cristiana Green RN) Goal(s): Patient will have an Intake of Nutrients Sufficient to Meet Metabolic Needs (Cristiana Green RN) Interventions: Nutritional Screening and Assessment per Hospital Policy; Consult Chemistry Intern for Further Assessment and Recommendations Regarding Food Preferences and Nutritional Support; Allow Patient to Plan and Order Diet when Possible; Monitor Laboratory Values That Indicate Nutritional Well-being; Consult Managing Partner for Nutritional Support Regarding Requirements; Document Actual Weight Initially and Weekly (Do Not Estimate); Encourage Patient Participation in Maintaining a Food Log as Indicated; Educate Patient on the Importance of Maintaining an Adequate Caloric Intake (Cristiana Green RN) Outcome: Patient will Receive Adequate Calories and Fluid Volume to Meet Metabolic Needs (Cristiana Green RN) Status: Ongoing (Cristiana Green RN) Outcome: Patient will Select Foods or Meals that Support Adequate Nutrition (Cristiana Green RN) Status: Ongoing (Cristiana Green RN) Grieving State: Not Applicable (Cristiana Green RN) Additional Care Plan State: Actual (Cristiana Green RN) Nursing Diagnosis or r/t: (Cristiana Green RN) Goal(s): Will breastfeed infant at least 8 times in 24 hours. (Cristiana Green RN) Interventions: Will assist patient in infant (Cristiana Green RN) Outcome Status: Ongoing (Cristiana Green RN)
[2016-05-16 07:34] LABS: HEMATOCRIT 34.7 % (36.0-47.0); HEMOGLOBIN 11.5 g/dL (12.0-15.5); HGB HCT DIFFERENCE -0.2; MEAN CORPUSCULAR HEMOGLOBIN 29.7 pg (27.0-33.4); MEAN CORPUSCULAR HGB CONC 33.1 g/dL (32.0-36.0); MEAN CORPUSCULAR VOLUME 90 fl (80-97); RED BLOOD COUNT 3.86 10^6/uL (3.72-5.28); RED CELL DISTRIBUTION WIDTH 14.5 % (11.5-14.0); WHITE BLOOD COUNT 13.8 10^3/uL (4.0-10.5)
[2016-05-16] MEDS: ACETAMINOPHEN WITH CODEINE #3 TABLET PO PRN ×2 (08:33→21:31)
[2016-05-16] MEDS: FERROUS SULFATE 325 MG TABLET PO SCH ×2 (10:16→18:21)
[2016-05-16] MEDS: SENNOSIDES/DOCUSATE 8.6-50 MG 1 EACH TABLET PO SCH (10:16)
[2016-05-16] MEDS: PRENATAL VITAMIN W-O CA NO5/FE FUMARATE/FA CAPSULE PO SCH (10:16)
[2016-05-16] MEDS: DOCUSATE SODIUM 100 MG CAPSULE PO SCH ×2 (10:16→18:21)
--- NOTE | 2016-05-16 12:47 | PDOC PROGRESS REPORT ---
Subjective-OB Subjective: Post Delivery Day: 30 year old. Denies any needs at this time pt doing well ff@[id number] mild lochia no clots assisted pt with anticipate d/c in AM Physical Exam (OB) Vital Signs: Temp Pulse Resp BP Pulse Ox 98.4 F 67 15 119/74 100 05/16/16 07:50 05/16/16 07:50 05/16/16 07:50 05/16/16 07:50 05/16/16 07:50 Intake & Output 05/15/16 05/16/16 05/17/16 06:59 06:59 06:59 Intake Total 400 Balance 400 Weight 72.25 kg - PIH/Pre-Eclampsia Clonus: Negative - Lochia Lochia Amount: Scant < 10 ml Lochia Color: Rubra/Red - Abdomen Description: Tender, Soft Hernia Present: No Fundal Description: Firm, Midline Fundal Height: u/u - u/2 Objective-Diagnostic Laboratory: 05/16/16 07:12 05/16/16 07:12 WBC 13.8 H RBC 3.86 Hgb 11.5 L Hct 34.7 L MCV 90 MCH 29.7 MCHC 33.1 RDW 14.5 H Plt Count 227 Assessment and Plan(PN) - Time Spent with Patient Medications reviewed and adjusted accordingly: Yes - Disposition Anticipated Discharge: Home
[2016-05-17] MEDS: IBUPROFEN 800 MG TABLET PO SCH ×2 (05:33→13:22)
[2016-05-17 08:44] VITALS: BP 111/71
[2016-05-17] MEDS: DOCUSATE SODIUM 100 MG CAPSULE PO SCH ×2 (09:54→17:27)
[2016-05-17] MEDS: FERROUS SULFATE 325 MG TABLET PO SCH ×2 (09:54→17:27)
[2016-05-17] MEDS: PRENATAL VITAMIN W-O CA NO5/FE FUMARATE/FA CAPSULE PO SCH (09:54)
[2016-05-17] MEDS: SENNOSIDES/DOCUSATE 8.6-50 MG 1 EACH TABLET PO SCH (09:55)
--- NOTE | 2016-05-17 10:55 | PDOC DISCHARGE SUMMARY ---
Final Diagnosis Discharge Date: 05/17/16 - Final Diagnosis (1) Delivery normal Is this a current diagnosis for this admission?: Yes Discharge Data - Discharge Medication Home Medications: [id number]/Iron Fumarate/FA/Dss [ 19 Tablet] 1 tab PO DAILY 09/11/14 Reason(s) for Admission: Onset of Labor, PROM Procedures: NST Intrapartum Procedure(s): Spontaneous Vaginal Delivery Complication(s): Laceration-Vaginal, Other Laceration-Degree: 1st - Diagnosis Test Laboratory: Temp Pulse Resp BP Pulse Ox 98.1 F 86 16 111/71 98 05/17/16 08:07 05/17/16 08:07 05/17/16 08:07 05/17/16 08:07 05/17/16 08:07 05/14/16 05/14/16 05/16/16 19:17 20:55 07:12 RBC 3.99 3.86 Hgb 11.8 L 11.5 L Hct 35.5 L 34.7 L Urine Opiates Screen NEGATIVE - Discharge information/Instructions Discharge Activity: Activity As Tolerated, No Lifting Over 10 Pounds, Pelvic Rest, No tub bath Discharge Diet: Regular Disposition: HOME, SELF-CARE Follow up with: [facility] in: 4, Weeks
== END 2016-05-17 19:08 | disposition home or self-care (01) | DRG 775 ==
LOC: LC 19:08 → LR 20:20 → 2S 05-15 02:44
PROVIDERS: ADMIT Student in an Organized Health Care Education/Training Program; ATTEND Student in an Organized Health Care Education/Training Program
PROC: 10E0XZZ Delivery of Products of Conception, External Approach (ICD-10-PCS; principal; 2016-05-14)
PROC: 0HQ9XZZ Repair Perineum Skin, External Approach (ICD-10-PCS; 2016-05-14)
DX: O60.14X0 Preterm labor third trimester with preterm delivery third trimester, not applicable or unspecified (principal); O71.89 Other specified obstetric trauma; O64.5XX0 Obstructed labor due to compound presentation, not applicable or unspecified; Z3A.36 36 weeks gestation of pregnancy; Z37.0 Single live birth; Z88.0 Allergy status to penicillin
CPT/HCPCS: 36415; 80307; 81005; 84112; 85025; 85027; 86592; 86850; 86900; 86901; 90715; J2590; J3490